=== PATIENT | female | born 1945 | race Caucasian/White ===

== ENCOUNTER → 2022-08-16 14:29 | Outpatient (CLI) | payer MEDICARE, OTHER, SELFPAY ==
[2022-08-16 15:10] LABS: Basophils % 0.4 % (0.1-2.0); Eosinophils # 0.2 K/mm3 (0.0-0.4); Eosinophils % 2.5 % (0.1-12.0); Hematocrit 33.4 % (37.0-47.0); Hemoglobin 11.2 g/dL (12.2-16.2); Lymphocytes # 1.3 K/mm3 (0.7-4.5); Lymphocytes % 14.8 % (10-50); Mean Corpuscular HGB Conc 33.5 g/dL (31.8-35.4); Mean Corpuscular Hemoglobin 30.1 pg (27.0-31.2); Mean Corpuscular Volume 89.9 fl (81-99); Mean Platelet Volume 8.1 fl (7.4-10.4); Monocytes # 0.3 K/mm3 (0.1-1.0); Monocytes % 3.6 % (1.7-9.3); Neutrophils # 6.6 K/mm3 (1.8-7.8); Neutrophils % 78.7 % (37.0-80.0); Platelet Count 191 K/mm3 (142-424); Red Blood Count 3.71 M/mm3 (4.20-5.40); Red Cell Distribution Width 14.3 % (11.5-17.5); White Blood Count 8.4 K/mm3 (4.8-10.8)
[2022-08-16 16:10] LABS: Alanine Aminotransferase 20 U/L (12-78); Albumin Level 3.5 g/dl (3.5-5.0); Albumin/Globulin Ratio 1.3 (1.1-1.8); Alkaline Phosphatase 141 U/L (38-126); Anion Gap 11.6 mEq/L (5-15); Aspartate Amino Transferase 37 U/L (14-36); Bilirubin,Total 0.2 mg/dl (0.2-1.3); Blood Urea Nitrogen 37 mg/dl (7-17); Calcium 8.8 mg/dl (8.4-10.2); Carbon Dioxide 29 mmol/L (22.0-30.0); Chloride 100 mmol/L (98-107); Estimated Glomerular Filt Rate 23 ml/min (>60); GFR (African American) 27 ML/MIN (>60); Globulin 2.6 g/dL (1.3-3.2); Glucose 223 mg/dl (74-100); Potassium 4.6 mmoL/L (3.5-5.1); Sodium 136 mmol/L (136-145); Total Protein,Serum 6.1 g/dl (6.3-8.2)
== END ==
PROVIDERS: PCP Family Medicine; Visit Provider Internal Medicine Nephrology
DX: N18.4 Chronic kidney disease, stage 4 (severe) (principal)
CPT/HCPCS: 36415; 80053; 85025

== ENCOUNTER 2024-11-24 09:49 | Inpatient (IN) | payer MEDICARE, OTHER, SELFPAY ==
[2024-11-24] VITALS (13 sets, daily range): BP systolic 154–199; BP diastolic 76–112; PULSE 77–86; RESP 15–20; TEMP 36.6–37.1; O2SAT 95–98; BMI 30.7; BMI 27.5
--- NOTE | 2024-11-24 09:59 | ED_ITS ---
Discharge Plan Disposition Patient Disposition: Admitted Condition: Fair Clinical Impressions Clinical Impression: Acute delirium Discharge ED Provider: Hubert Cooper General Adult HPI General Chief complaint: Weakness Stated complaint: high blood pressure soa AMS Time Seen by Provider: 11/24/24 09:58 History of Present Illness HPI narrative: Patient presents for evaluation of altered mental status, gradual in onset starting approximately 2 weeks ago however worsening for the past 48 hours. Patient had admission in September that was complicated by hospital-acquired delirium. She was admitted at that time for fracture of her left upper extremity that was treated nonoperatively at outside hospital. Patient denies any blood thinner usage although has history of type 2 diabetes, kidney disease, and CHF. She takes reportedly a as needed diuretic. Home health noted bilateral wheezing. Daughter who present provides majority of history reports she has noticed recent falls with no associated obvious head injury. Patient has been disoriented and requiring as needed oxygen all the time. She normally wears 2 L at night although occasionally in the past has required continuous supplemental oxygen. No reported fevers. No changes in medications. Patient was on opiate analgesia following her shoulder injury in September however that has since been discontinued. Please note that above description of symptoms, in this electronic medical record under categorization of recalled from ER triage doctor by RN are reflective of an initial nursing assessment, however, is not reflective of my full history and physical exam that was personally taken and clarified. Consequentially, this preceding description of symptoms, which may include the patient's categorized chief complaint in the EMR, do not reflect my personal clinical impression, and the ultimate description of history of present illness and patient stated complaints should be deferred to this section of the note. Unless stated otherwise or congruent with this section of the note, additional signs, symptoms, or incongruence should be interpreted as inaccurate with my clinical impression. Related Data Home Medications ?Medication ?Instructions ?Recorded ?Confirmed ferrous fumarate 325 mg (106 mg 325 mg PO DAILY 08/09/22 11/24/24 iron) tablet isosorbide mononitrate 30 mg 30 mg PO HS 08/09/22 11/24/24 tablet,extended release 24 hr cvtizdni-ngql-kihdmpu gluconate 9 15 ml PO DAILY 08/09/22 11/24/24 mg iron/15 mL (15 mL) oral liquid (Centrum) sertraline 100 mg tablet 100 mg PO DAILY 08/09/22 11/24/24 albuterol sulfate 90 mcg/actuation 2 inh inhalation NEEDED PRN 08/14/23 11/24/24 aerosol inhaler shortness of air blood sugar diagnostic (True #10 ea 08/14/23 11/24/24 Metrix Glucose Test Strip) lancets 30 gauge (TRUEplus Lancets) #100 ea 08/14/23 11/24/24 atorvastatin 40 mg tablet 40 mg PO HS 11/24/24 11/24/24 famotidine 20 mg tablet 10 mg PO HS 11/24/24 11/24/24 insulin aspart U-100 100 unit/mL See Protocol SQ NEEDED PRN 11/24/24 11/24/24 subcutaneous solution (Novolog Hyperglycemia U-100 Insulin aspart) insulin lispro 100 unit/mL 40 unit SQ DAILY 11/24/24 11/24/24 subcutaneous solution levothyroxine 100 mcg tablet 100 mcg PO DAILY 11/24/24 11/24/24 melatonin 5 mg tablet 5 mg PO HS PRN Sleep 11/24/24 11/24/24 metoprolol succinate 50 mg 50 mg PO DAILY 11/24/24 11/24/24 tablet,extended release 24 hr torsemide 20 mg tablet 20 mg PO DAILYP PRN Weight Gain 11/24/24 11/24/24 tramadol 50 mg tablet 50 mg PO BIDP PRN Pain 11/24/24 11/24/24 Allergies Allergy/AdvReac Type Severity Reaction Status Date / Time Penicillins Allergy Mild hives Verified 11/24/24 10:30 adhesive AdvReac Mild blisters Verified 11/24/24 10:30 CONTRAST Allergy Difficulty Uncoded 11/24/24 14:20 Breathing PFSH [facility] Disclaimer: The information contained in this section may have been updated after the patient was seen, as this information can be updated by other users. Medical History FH: cholecystectomy Breast cancer Surgical History H/O: hysterectomy H/O lumpectomy Hx of tonsillectomy Social History Smoking Status: Never smoker alcohol intake: never current occupational status: retired Travel in the last 8 weeks: None Have you lived/traveled outside [place] in past 30 days?: No Contact w/someone who lives/traveled outside US past 30 days?: No Exposure to someone with infectious disease in past 14 days?: No Do you have a fever (greater than 100.4 F or 38 C)?: No Have you tested positive for COVID-19: No Exposed to someone with COVID-19 in past 14 days?: No Do you have a sore throat?: No Do you have a cough?: No Do you have any weakness?: No Do you have any diarrhea?: No Are you experiencing any unusual bleeding?: No Do you have any muscle aches/pain?: No Do you have any abdominal pain?: No Are you experiencing loss of taste or smell?: No Other Medical History Have you received the Pneumonia Vaccine: Yes ROS Obtained: Yes other As per HPI Physical Exam General General appearance: alert and in no apparent distress Head Head exam: atraumatic and normocephalic Eye Eye exam: Present normal appearance Neck Neck exam: Present normal inspection Chest Chest inspection: Present normal inspection and symmetric chest wall rise Respiratory Respiratory exam: Present normal lung sounds bilaterally; Absent respiratory distress Cardiovascular Cardiovascular exam: Present regular rate and normal rhythm Abdominal Exam Abdominal exam: Present soft Neurological Exam Neurological exam: Present alert Psychiatric Psychiatric exam: Present normal affect and normal mood Skin Skin exam: Present warm and dry Other Other exam information: Decreased breath sounds on right, wheezing bilaterally Medical Decision Making Medical Records Medical records reviewed: Yes I reviewed the patient's medical records. Screening: Per USPSTF and CDC recommendations, given the prevalence of disease in our region, it is our hospital?s policy to screen for HIV and viral Hepatitis for all patients aged 18 and over and those with ongoing risk factors. Tal Inquiry Pt receiving controlled substance: No Vital Signs: 11/24/24 09:50 11/24/24 10:04 11/24/24 10:06 Temperature 98.7 F Temperature Source Oral Pulse Rate 84 82 Pulse Rate [Left Radial] 83 Respiratory Rate 16 15 Blood Pressure 195/94 H 197/112 H Blood Pressure [Right Arm] 195/94 H Blood Pressure Mean [Right Arm] 127 Blood Pressure Source [Right Arm] 02 Sat by Pulse Oximetry 97 96 97 Oxygen Delivery Method Room Air Room Air Room Air Oxygen Flow Rate (LPM) 11/24/24 10:30 11/24/24 11:01 11/24/24 11:31 Temperature Temperature Source Pulse Rate 78 81 77 Pulse Rate [Left Radial] Respiratory Rate 18 16 19 Blood Pressure 154/97 H 168/83 H 194/100 H Blood Pressure [Right Arm] Blood Pressure Mean [Right Arm] Blood Pressure Source [Right Arm] 02 Sat by Pulse Oximetry 97 95 96 Oxygen Delivery Method Nasal Cannula Nasal Cannula Nasal Cannula Oxygen Flow Rate (LPM) 2 2 2 11/24/24 12:00 11/24/24 12:31 11/24/24 13:01 Temperature Temperature Source Pulse Rate 77 79 78 Pulse Rate [Left Radial] Respiratory Rate 15 17 20 Blood Pressure 199/98 H 194/98 H 183/90 H Blood Pressure [Right Arm] Blood Pressure Mean [Right Arm] Blood Pressure Source [Right Arm] 02 Sat by Pulse Oximetry 96 96 97 Oxygen Delivery Method Nasal Cannula Nasal Cannula Nasal Cannula Oxygen Flow Rate (LPM) 2 2 2 11/24/24 14:00 11/24/24 14:09 Temperature 97.8 F 98.0 F Temperature Source Oral Pulse Rate 78 Pulse Rate [Left Radial] 86 Respiratory Rate 18 16 Blood Pressure 183/90 H Blood Pressure [Right Arm] 177/77 H Blood Pressure Mean [Right Arm] 110 Blood Pressure Source [Right Arm] Automatic Cuff 02 Sat by Pulse Oximetry 98 Oxygen Delivery Method Nasal Cannula Oxygen Flow Rate (LPM) 2 Lab Data Lab Results 11/24/24 10:00: Urine Color Yellow, Urine Appearance Clear, Urine pH 6.5, Ur Specific [place] 1.025, Urine Protein 3+ A, Urine Glucose (UA) 1+, Urine Ketones Negative, Urine Blood 1+ A, Urine Nitrate Positive A, Urine Bilirubin Negative, Urine Urobilinogen 1.0, Ur Leukocyte Esterase Negative, Urine RBC Occasional, Urine WBC 20-50, Ur Squamous Epith Cells 3-5, Urine Bacteria 1+ 11/24/24 10:08: WBC 8.3, RBC 4.20, Hgb 11.9 L, Hct 36.9 L, MCV 87.9, MCH 28.3, MCHC 32.2, RDW 14.0, Plt Count 165, MPV 9.8, Neut % (Auto) 75.5, Lymph % (Auto) 16.5, [place] % (Auto) 4.8, Eos % (Auto) 2.3, Baso % (Auto) 0.5, Neut # (Auto) 6.2, Lymph # (Auto) 1.4, [place] # (Auto) 0.4, Eos # (Auto) 0.2, Baso # (Auto) 0.0, Sodium 138, Potassium 3.5, Chloride 98, Carbon Dioxide 36 H, Anion Gap 7.5, BUN 18 H, Creatinine 1.10 H, Estimated Creat Clear 53, Estimated GFR 48 L, Est GFR ( Amer) 58 L, Glucose 274 H, Calcium 8.5, Magnesium 1.7, Total Bilirubin 0.6, AST 43 H, ALT 27, Alkaline Phosphatase 142 H, Troponin I 0.02, NT-Pro-B Natriuret Pep 10934 H, Total Protein 6.1 L, Albumin 3.6, Globulin 2.5, Albumin/Globulin Ratio 1.4, Lipase 68, TSH 3.00, Free T4 1.49, HCV Ab MONICA w/Rflx PCR Qn Negative, HIV Ag/Ab Combo Qual Negative 11/24/24 10:15: VBG pH 7.34, VBG pCO2 59.3 H, VBG pO2 41.2 H, VBG HCO3 31.6 H, V BG Total CO2 33.4 H, VBG O2 Saturation 72.5 H, VBG Base Excess 5.9 H, VBG Lactic Acid 1.4 11/24/24 10:30: Chlamy pneumoniae PCR Not detected, Adenovirus (PCR) Not detected, B. pertussis DNA (PCR) Not detected, Coronavirus OC43 (PCR) Not detected, Coronavirus HKU1 (PCR) Not detected, Coronavirus 229E (PCR) Not detected, SARS-CoV-2 (PCR) Not detected 11/24/24 10:30: SARS-CoV-2 (PCR) Not detected, Coronavirus NL63 (PCR) Not detected, Human Metapneumovir PCR Not detected, Influenza A (H1) PCR Not detected, Influ A (H1N1/09) PCR Not detected, Influenza A (H3) PCR Not detected, Influenza Type A (PCR) Not detected, Influenza A Untype (PCR) Not detected, Influenza Type B (PCR) Not detected 11/24/24 10:30: Influenza Type B (PCR) Not detected, M. pneumoniae (PCR) Not detected, Parainfluenza 1 (PCR) Not detected, Parainfluenza 2 (PCR) Not detected, Parainfluenza 3 (PCR) Not detected, Parainfluenza 4 (PCR) Not detected, RSV (PCR) Not detected, Entero/Rhino (PCR) Not detected 11/24/24 13:10: Troponin I 0.02 11/24/24 10:08 11/24/24 10:08 Orders (Tests/Meds): ED MEDICATIONS Generic Name Dose Route Start Last Admin Trade Name Freq PRN Reason Stop Dose Admin Acetaminophen 650 mg 11/24/24 15:04 Acetaminophen 325mg Tab PO 12/24/24 15:03 Q4HP PRN Fever or Mild Pain (1-3) Enoxaparin Sodium 40 mg 11/25/24 09:00 Enoxaparin 40mg/0.4ml Syringe SUBCUT 12/25/24 08:59 DAILY [facility] Insulin Human Lispro 0 unit 11/24/24 16:30 Humalog 100 Units/Ml 10ml Vial (Ssi) SUBCUT 12/24/24 16:29 ACHS SHAUN Protocol Ondansetron HCl 4 mg 11/24/24 15:04 Ondansetron 4mg/2ml Vial IV 12/24/24 15:03 Q6HP PRN Nausea Discontinued Medications Generic Name Dose Route Start Last Admin Trade Name Freq PRN Reason Stop Dose Admin Furosemide 40 mg 11/24/24 10:48 11/24/24 10:54 Furosemide 40mg/4ml Vial IV 11/24/24 10:49 40 mg ONCE ONE Administration Ceftriaxone Sodium 1 gm/ 50 mls @ 100 mls/hr 11/24/24 11:36 11/24/24 11:45 Sodium Chloride IV 11/24/24 12:05 100 mls/hr ONCE STA Administration ORDERS Category Date Time Status CT cervical spine wo con Stat Cat Scan 11/24/24 10:[address] head/brain wo con Stat Cat Scan 11/24/24 10:26 Completed POCUS Point of Care (ER Only) Stat Exams 11/24/24 10:07 Completed XR chest portable Stat Exams 11/24/24 10:27 Completed BNP [NT Pro Brain Natriuretic Pep.] Stat Lab 11/24/24 10:08 Completed CBC w/Auto Diff [Complete Blood Count Auto Diff] Stat Lab 11/24/24 10:08 Completed CMP [Comprehensive Metabolic Panel] Stat Lab 11/24/24 10:08 Completed Free T4 (Free Thyroxine) Stat Lab 11/24/24 10:08 Completed Full Resp Panel w/COVID ([facility]) Routine Lab 11/24/24 10:30 Completed HIV Combo Stat Lab 11/24/24 10:08 Completed Hepatitis C Ab Qual. W/ RFX Stat Lab 11/24/24 10:08 Completed Lipase Stat Lab 11/24/24 10:08 Completed MAG [Magnesium] Stat Lab 11/24/24 10:08 Completed Rapid PCR Covid and Flu A/B Stat Lab 11/24/24 10:30 Completed TSH [Thyroid Stimulating Hormone] Stat Lab 11/24/24 10:08 Completed Troponin I Q3H Lab 11/24/24 10:08 Completed Troponin I Q3H Lab 11/24/24 13:10 Completed Urinalysis and Microscopic Stat Lab 11/24/24 10:00 Completed Blood Culture Stat Micro 11/24/24 11:30 Received Urine Culture Stat Micro 11/24/24 10:00 Received VBG [Venous Blood Gas] Stat RT 11/24/24 10:15 Completed Medical Decision Narrative: Patient with history and exam per above presenting for evaluation of altered mental status Diagnoses considered include delirium, volume overload, infectious precipitant, among others. Dnqby-[id number] ultrasound reveals right-sided pleural effusion, moderate, with evidence of pulmonary edema bilaterally ED workup and treatment included: ED MEDICATIONS Generic Name Dose Route Start Last Admin Trade Name Freq PRN Reason Stop Dose Admin Acetaminophen 650 mg 11/24/24 15:04 Acetaminophen 325mg Tab PO 12/24/24 15:03 Q4HP PRN Fever or Mild Pain (1-3) Enoxaparin Sodium 40 mg 11/25/24 09:00 Enoxaparin 40mg/0.4ml Syringe SUBCUT 12/25/24 08:59 DAILY SHAUN Insulin Human Lispro 0 unit 11/24/24 16:30 Humalog 100 Units/Ml 10ml Vial (Ssi) SUBCUT 12/24/24 16:29 ACHS SHAUN Protocol Ondansetron HCl 4 mg 11/24/24 15:04 Ondansetron 4mg/2ml Vial IV 12/24/24 15:03 Q6HP PRN Nausea Discontinued Medications Generic Name Dose Route Start Last Admin Trade Name Freq PRN Reason Stop Dose Admin Furosemide 40 mg 11/24/24 10:48 11/24/24 10:54 Furosemide 40mg/4ml Vial IV 11/24/24 10:49 40 mg ONCE ONE Administration Ceftriaxone Sodium 1 gm/ 50 mls @ 100 mls/hr 11/24/24 11:36 11/24/24 11:45 Sodium Chloride IV 11/24/24 12:05 100 mls/hr ONCE STA Administration ORDERS Category Date Time Status CT cervical spine wo con Stat Cat Scan 11/24/24 10:[address] head/brain wo con Stat Cat Scan 11/24/24 10:26 Completed POCUS Point of Care (ER Only) Stat Exams 11/24/24 10:07 Completed XR chest portable Stat Exams 11/24/24 10:27 Completed BNP [NT Pro Brain Natriuretic Pep.] Stat Lab 11/24/24 10:08 Completed CBC w/Auto Diff [Complete Blood Count Auto Diff] Stat Lab 11/24/24 10:08 Completed CMP [Comprehensive Metabolic Panel] Stat Lab 11/24/24 10:08 Completed Free T4 (Free Thyroxine) Stat Lab 11/24/24 10:08 Completed Full Resp Panel w/COVID ([facility]) Routine Lab 11/24/24 10:30 Completed HIV Combo Stat Lab 11/24/24 10:08 Completed Hepatitis C Ab Qual. W/ RFX Stat Lab 11/24/24 10:08 Completed Lipase Stat Lab 11/24/24 10:08 Completed MAG [Magnesium] Stat Lab 11/24/24 10:08 Completed Rapid PCR Covid and Flu A/B Stat Lab 11/24/24 10:30 Completed TSH [Thyroid Stimulating Hormone] Stat Lab 11/24/24 10:08 Completed Troponin I Q3H Lab 11/24/24 10:08 Completed Troponin I Q3H Lab 11/24/24 13:10 Completed Urinalysis and Microscopic Stat Lab 11/24/24 10:00 Completed Blood Culture Stat Micro 11/24/24 11:30 Received Urine Culture Stat Micro 11/24/24 10:00 Received VBG [Venous Blood Gas] Stat RT 11/24/24 10:15 Completed Labs were independently interpreted by me, significant for no leukocytosis, no respiratory acidosis, creatinine overall consistent with what appears to be baseline, however BNP 10,700, urinalysis with pyuria, bacteriuria, nitrate positive Imaging was independently visualized and interpreted by me, significant for no acute findings Please refer to radiology report for full details. Patient will benefit from mission for further management. She was accepted for admission by hospitalist Critical Care Critical Care Time Critical Care Time: No
--- NOTE | 2024-11-24 10:02 | PC.NURSE ---
UA sent to lab
--- NOTE | 2024-11-24 10:03 | ECG_ITS ---
APPROVED REPORT Exam: Resting ECG HR:83 bpm ECG Measurements Heart Rate 83 AXES CO 218 P 91 QRSd 179 QRS -69 QT 458 T 114 QTc 498 Conclusion ELECTRONIC VENTRICULAR PACEMAKER ABNORMAL RHYTHM ECG Electronically signed by : JOSIE CHRIS, 11/27/2024 06:07:10
--- NOTE | 2024-11-24 10:11 | PC.NURSE ---
I called respiratory and spoke with with Elyse letting her know that I sent a VBG to lab.
[2024-11-24 10:18] LABS: Lactate Venous 1.4 mmol/L (0.4-2.0); VBG Base Excess 5.9 mmol/L (-2.4-2.3); VBG HCO3 31.6 mmol/L (23-30); VBG Oxygen Saturation 72.5 % (50-70); VBG PH 7.34 mmol/L (7.31-7.41); VBG PO2 41.2 mmol/L (28-40); VBG Total CO2 33.4 mmol/L (23-27)
[2024-11-24 10:21] LABS: VBG PCO2 59.3 mmol/L (35-51)
--- NOTE | 2024-11-24 10:21 | PC.NURSE ---
respiratory called with critical results i transferred call to charge nurse ko
--- NOTE | 2024-11-24 10:21 | PC.NURSE ---
daughter remains at bedside
--- NOTE | 2024-11-24 10:21 | PC.NURSE ---
aware of [id number] from [facility]
--- NOTE | 2024-11-24 10:26 | CT_ITS ---
FINAL REPORT TECHNIQUE: Thin section axial CT with sagittal reconstruction without contrast This study was performed with techniques to keep radiation doses as low as reasonably achievable, (ALARA). Individualized dose reduction techniques using automated exposure control or adjustment of mA and/or kV according to the patient''s size were employed. CLINICAL HISTORY: ams, recent falls FINDINGS: No fracture is seen. Alignment is normal. There is mild diffuse degenerative disc disease. No obvious bony spinal canal stenosis is present. No gross disk abnormalities are seen. 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 There are bilateral pleural effusions seen, right greater than left. IMPRESSION: No fracture or malalignment of the cervical spine. Bilateral pleural effusions, right greater than left. Reviewed, Interpreted and Dictated by Ashlyn Hernandez MD Transcribed by Roxana Knapp Authenticated and [facility]
--- NOTE | 2024-11-24 10:26 | CT_ITS ---
FINAL REPORT TECHNIQUE: Noncontrast exam This study was performed with techniques to keep radiation doses as low as reasonably achievable, (ALARA). Individualized dose reduction techniques using automated exposure control or adjustment of mA and/or kV according to the patient''s size were employed. CLINICAL HISTORY: ams, recent falls FINDINGS: There is mild generalized atrophy and mild chronic microvascular ischemic change. There is a small chronic lacunar infarct in the left basal ganglia. No abnormal density is seen. Ventricles are normal. There is no hemorrhage. No mass effect is seen. Bone windows show no evidence of fracture. IMPRESSION: No acute findings Reviewed, Interpreted and Dictated by Ashlyn Hernandez MD Transcribed by Roxana Knapp Authenticated and [facility]
--- NOTE | 2024-11-24 10:27 | XR_ITS ---
FINAL REPORT TECHNIQUE: Single view chest CLINICAL HISTORY: ams, soa, B lines/R effusion on pocus FINDINGS: A single view of the chest was obtained. The heart is mildly enlarged. A left-sided pacemaker is in place. The lungs are clear. There is no pneumothorax. 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 There is an age-indeterminate fracture of the left proximal humerus. IMPRESSION: No acute cardiopulmonary process. Left humeral head and neck fracture, age-indeterminate. Reviewed, Interpreted and Dictated by Ashlyn Hernandez MD Transcribed by Roxana Knapp Authenticated and [facility]
--- NOTE | 2024-11-24 10:30 | PC.NURSE ---
pt to radiology via stretcher
--- NOTE | 2024-11-24 10:32 | PC.NURSE ---
pt going to ct via stretcher
[2024-11-24 10:33] LABS: Microscopic, Urine URINE MICROSCOPIC (MICROSCOPIC)
[2024-11-24 10:33] LABS: Basophils % 0.5 % (0.1-2.0); Eosinophils # 0.2 K/mm3 (0.0-0.4); Eosinophils % 2.3 % (0.1-12.0); Hematocrit 36.9 % (37.0-47.0); Hemoglobin 11.9 g/dL (12.2-16.2); Lymphocytes # 1.4 K/mm3 (0.7-4.5); Lymphocytes % 16.5 % (10-50); Mean Corpuscular HGB Conc 32.2 g/dL (31.8-35.4); Mean Corpuscular Hemoglobin 28.3 pg (27.0-31.2); Mean Corpuscular Volume 87.9 fl (81-99); Mean Platelet Volume 9.8 fl (7.4-10.4); Monocytes # 0.4 K/mm3 (0.1-1.0); Monocytes % 4.8 % (1.7-9.3); Neutrophils # 6.2 K/mm3 (1.8-7.8); Neutrophils % 75.5 % (37.0-80.0); Platelet Count 165 K/mm3 (142-424); White Blood Count 8.3 K/mm3 (4.8-10.8)
[2024-11-24 10:35] LABS: Coronavirus 19, PCR Not Detected (NotDetected); Influenza A, PCR Not Detected (NotDetected); Influenza B, PCR Not Detected (NotDetected)
[2024-11-24 10:39] LABS: Albumin Level 3.6 g/dl (3.5-5.0); Chloride 98 mmol/L (98-107)
[2024-11-24 10:40] LABS: Potassium 3.5 mmoL/L (3.5-5.1); Sodium 138 mmol/L (136-145)
[2024-11-24 10:42] LABS: Alanine Aminotransferase 27 U/L (12-78); Anion Gap 7.5 mEq/L (5-15); Aspartate Amino Transferase 43 U/L (14-36); Blood Urea Nitrogen 18 mg/dl (7-17); Carbon Dioxide 36 mmol/L (22.0-30.0); Creatinine Clearance Estimated 53 mL/min (50-200); Estimated Glomerular Filt Rate 48 ml/min (>60); GFR (African American) 58 ML/MIN (>60)
--- NOTE | 2024-11-24 10:42 | PC.NURSE ---
pt arrived melonie to room from ct
[2024-11-24 10:43] LABS: Albumin/Globulin Ratio 1.4 (1.1-1.8); Alkaline Phosphatase 142 U/L (38-126); Bilirubin,Total 0.6 mg/dl (0.2-1.3); Calcium 8.5 mg/dl (8.4-10.2); Globulin 2.5 g/dL (1.3-3.2); Glucose 274 mg/dl (74-100); Lipase 68 U/L (23-300); Magnesium 1.7 mg/dl (1.6-2.3); Total Protein,Serum 6.1 g/dl (6.3-8.2)
[2024-11-24 10:52] LABS: NT Pro Brain Natriuretic Pep. 10700 pg/mL (0-450)
[2024-11-24] MEDS: FUROSEMIDE 40MG/4ML VIAL 40 MG IV (10:54)
[2024-11-24 10:55] LABS: Troponin I 0.02 ng/ml (0.00-0.034)
[2024-11-24 11:00] LABS: Appearance,Urine CLEAR (Clear); Bilirubin,Urine Negative (Negative); Blood, Urine 1+ (Negative); Color,Urine YELLOW (Yellow); Glucose,Urine (UA) 1+ (Negative); Ketones,Urine Negative (Negative); Leukocyte Esterase,Urine Negative (Negative); Nitrate,Urine POSITIVE (Negative); PH,Urine 6.5 (5.0-8.5); Protein,Urine 3+ (Negative); Specific Gravity, Urine 1.025 (1.005-1.030)
[2024-11-24 11:02] LABS: Free T4 (Free Thyroxine) 1.49 ng/dl (0.78-2.19)
--- NOTE | 2024-11-24 11:02 | PC.NURSE ---
Purewick was placed for pateint done by tech EB
[2024-11-24 11:17] LABS: Bacteria,Urine 1+ /lpf; RBC,Urine Occasional #/hpf (0-3); WBC,Urine 20-50 #/hpf (0-3)
--- NOTE | 2024-11-24 11:23 | PC.NURSE ---
pt going to xray at this time
[2024-11-24 11:25] LABS: HIV Combo NEGATIVE (Negative)
--- NOTE | 2024-11-24 11:31 | PC.NURSE ---
2nd blood culture was done and sent to lab @1130. Blue band was placed on pt.
[2024-11-24 11:34] LABS: Hepatitis C Ab Qual. W/ RFX NEGATIVE (Negative)
[2024-11-24] MEDS: CEFTRIAXONE 1 GM 1 GM in 0.9 % SODIUM CHLORIDE 50 ML IV (11:45)
--- NOTE | 2024-11-24 11:45 | PC.NURSE ---
AT BS SPEAKING WITH PT AND DAUGHTER ABOUT POSS ADMISSION
--- NOTE | 2024-11-24 12:48 | PC.NURSE ---
Put white sheet under pt to pull pt up in bed, also Jennifer emptied 800 out of cannister urine.
--- NOTE | 2024-11-24 12:50 | PC.NURSE ---
spoke with house regarding bed
[2024-11-24 12:53] LABS: Adenovirus,PCR Not Detected (NotDetected); Bordetella Pertussis Not Detected (NotDetected); Chlamydophila Pneumoniae, PCR Not Detected (NotDetected); Coronavirus 19, PCR Not Detected (NotDetected); Coronavirus 229E Not Detected (NotDetected); Coronavirus NL63 Not Detected (NotDetected); Coronavirus OC43 Not Detected (NotDetected); Coronovirus HKU1,PCR Not Detected (NotDetected); Human Metapneumovirus Not Detected (NotDetected); Influenza A, PCR Not Detected (NotDetected); Influenza AH1, 2009 Not Detected (NotDetected); Influenza AH1, PCR Not Detected (NotDetected); Influenza AH3,PCR Not Detected (NotDetected); Influenza B, PCR Not Detected (NotDetected); Mycoplasma Pneumoniae, PCR Not Detected (NotDetected); Parainfluenza 1, PCR Not Detected (NotDetected); Parainfluenza 2, PCR Not Detected (NotDetected); Parainfluenza 3, PCR Not Detected (NotDetected); Parainfluenza 4, PCR Not Detected (NotDetected); Respiratory Syncytial Virus Not Detected (NotDetected); Rhinovirus/Enterovirus Not Detected (NotDetected)
--- NOTE | 2024-11-24 13:14 | PC.NURSE ---
pt ambulated to bathroom with TRN and cullen ko RN
--- NOTE | 2024-11-24 13:24 | PC.NURSE ---
report called to anna on second floor
--- NOTE | 2024-11-24 13:27 | PC.NURSE ---
assisted pt in bathroom and assisted with A.Lopez back to pt room, pt resting comfortable with family at bs
--- NOTE | 2024-11-24 13:27 | PC.NURSE ---
helped walk pt back to room and get in bed. pt is hooked back up to data machine and marc ko placed purewick back on pt
[2024-11-24 13:38] LABS: Troponin I 0.02 ng/ml (0.00-0.034)
--- NOTE | 2024-11-24 13:48 | [facility].PHAINT1 ---
Pharmacy Intervention Comments: home medication list verified using list from outpatient pharmacy and pt interview
--- NOTE | 2024-11-24 13:54 | PC.NURSE ---
arrived by w/c from ED
--- NOTE | 2024-11-24 15:04 | P.HP_ITS ---
History of Present Illness *Admission Date: 11/24/24 *Reason for visit:: Confusion, UTI *History of present illness: Magdalena Mcmanus is a 79-year-old female with a medical history significant for type 2 diabetes, hypertension, hypothyroidism who presents with 2 weeks of intermittent confusion, shortness of breath. Daughter at bedside provides most history. They state patient was recently admitted to [facility] in September 2020 for for left humeral fracture that was treated nonoperatively. Discharged to rehab, and returned home with home health end of September. Since then, per daughter, patient has not been truly herself and for the past 2 weeks she is gotten much more confused, and has required 2 L nasal cannula continuously at home. She is also had a few falls at home. She lives with her , daughter at home. Denies fever/chills, chest pain, abdominal pain, constipation/diarrhea. Daughter does state her legs have been more swollen today. Workup in the ED significant for BNP 10,700, CXR suggestive of pulmonary edema, UA suggestive of UTI. Head CT unremarkable for acute findings. Case discussed with ED provider and decision was made to admit patient for acute metabolic encephalopathy, UTI, heart failure exacerbation. [facility] Disclaimer: The information contained in this section may have been updated after the patient was seen, as this information can be updated by other users. Medical History FH: cholecystectomy Breast cancer Surgical History H/O: hysterectomy H/O lumpectomy Hx of tonsillectomy Social History Smoking Status: Never smoker alcohol intake: never current occupational status: retired Travel in the last 8 weeks: None Have you lived/traveled outside US in past 30 days?: No Contact w/someone who lives/traveled outside US past 30 days?: No Exposure to someone with infectious disease in past 14 days?: No Do you have a fever (greater than 100.4 F or 38 C)?: No Have you tested positive for COVID-19: No Exposed to someone with COVID-19 in past 14 days?: No Do you have a sore throat?: No Do you have a cough?: No Do you have any weakness?: No Do you have any diarrhea?: No Are you experiencing any unusual bleeding?: No Do you have any muscle aches/pain?: No Do you have any abdominal pain?: No Are you experiencing loss of taste or smell?: No Other Medical History Have you received the Flu Vaccine for this season: Yes Have you received the Pneumonia Vaccine: Yes Meds Home Medications and Allergies Home Medications ?Medication ?Instructions ?Recorded ?Confirmed ?Type ferrous fumarate 325 mg (106 mg 325 mg PO DAILY 08/09/22 11/24/24 History iron) tablet isosorbide mononitrate 30 mg 30 mg PO HS 08/09/22 11/24/24 History tablet,extended release 24 hr ppzycxon-ytyz-xvgxotc gluconate 9 15 ml PO DAILY 08/09/22 11/24/24 History mg iron/15 mL (15 mL) oral liquid (Centrum) sertraline 100 mg tablet 100 mg PO DAILY 08/09/22 11/24/24 History albuterol sulfate 90 mcg/actuation 2 inh inhalation NEEDED PRN 08/14/23 11/24/24 History aerosol inhaler shortness of air blood sugar diagnostic (True #10 ea 08/14/23 11/24/24 History Metrix Glucose Test Strip) lancets 30 gauge (TRUEplus Lancets) #100 ea 08/14/23 11/24/24 History atorvastatin 40 mg tablet 40 mg PO HS 11/24/24 11/24/24 History famotidine 20 mg tablet 10 mg PO HS 11/24/24 11/24/24 History insulin aspart U-100 100 unit/mL See Protocol SQ NEEDED PRN 11/24/24 11/24/24 History subcutaneous solution (Novolog Hyperglycemia U-100 Insulin aspart) insulin lispro 100 unit/mL 40 unit SQ DAILY 11/24/24 11/24/24 History subcutaneous solution levothyroxine 100 mcg tablet 100 mcg PO DAILY 11/24/24 11/24/24 History melatonin 5 mg tablet 5 mg PO HS PRN Sleep 11/24/24 11/24/24 History metoprolol succinate 50 mg 50 mg PO DAILY 11/24/24 11/24/24 History tablet,extended release 24 hr torsemide 20 mg tablet 20 mg PO DAILYP PRN Weight Gain 11/24/24 11/24/24 History tramadol 50 mg tablet 50 mg PO BIDP PRN Pain 11/24/24 11/24/24 History New Prescriptions to Start Prescriptions: Allergies Allergy/AdvReac Type Severity Reaction Status Date / Time Penicillins Allergy Mild hives Verified 11/24/24 10:30 adhesive AdvReac Mild blisters Verified 11/24/24 10:30 CONTRAST Allergy Difficulty Uncoded 11/24/24 14:20 Breathing Exam Data for Last 24 hours Vital signs and Labs for Last 24 Hours: Temp Pulse Resp BP Pulse Ox O2 Del Method O2 Flow Rate 98.0 F 78 16 183/90 H 98 Nasal Cannula 2 11/24/24 14:09 11/24/24 14:09 11/24/24 14:09 11/24/24 14:09 11/24/24 14:00 11/24/24 14:00 11/24/24 14:00 Laboratory Results - last 24 hr 11/24/24 10:00: Urine Color Yellow, Urine Appearance Clear, Urine pH 6.5, Ur Specific [place] 1.025, Urine Protein 3+ A, Urine Glucose (UA) 1+, Urine Ketones Negative, Urine Blood 1+ A, Urine Nitrate Positive A, Urine Bilirubin Negative, Urine Urobilinogen 1.0, Ur Leukocyte Esterase Negative, Urine RBC Occasional, Urine WBC 20-50, Ur Squamous Epith Cells 3-5, Urine Bacteria 1+ 11/24/24 10:08: WBC 8.3, RBC 4.20, Hgb 11.9 L, Hct 36.9 L, MCV 87.9, MCH 28.3, MCHC 32.2, RDW 14.0, Plt Count 165, MPV 9.8, Neut % (Auto) 75.5, Lymph % (Auto) 16.5, Mathews % (Auto) 4.8, Eos % (Auto) 2.3, Baso % (Auto) 0.5, Neut # (Auto) 6.2, Lymph # (Auto) 1.4, Mathews # (Auto) 0.4, Eos # (Auto) 0.2, Baso # (Auto) 0.0, Sodium 138, Potassium 3.5, Chloride 98, Carbon Dioxide 36 H, Anion Gap 7.5, BUN 18 H, Creatinine 1.10 H, Estimated Creat Clear 53, Estimated GFR 48 L, Est GFR ( Amer) 58 L, Glucose 274 H, Calcium 8.5, Magnesium 1.7, Total Bilirubin 0.6, AST 43 H, ALT 27, Alkaline Phosphatase 142 H, Troponin I 0.02, NT-Pro-B Natriuret Pep 30584 H, Total Protein 6.1 L, Albumin 3.6, Globulin 2.5, Albumin/Globulin Ratio 1.4, Lipase 68, TSH 3.00, Free T4 1.49, HCV Ab MONICA w/Rflx PCR Qn Negative, HIV Ag/Ab Combo Qual Negative 11/24/24 10:15: VBG pH 7.34, VBG pCO2 59.3 H, VBG pO2 41.2 H, VBG HCO3 31.6 H, VBG Total CO2 33.4 H, VBG O2 Saturation 72.5 H, VBG Base Excess 5.9 H, VBG Lactic Acid 1.4 11/24/24 10:30: Chlamy pneumoniae PCR Not detected, Adenovirus (PCR) Not detected, B. pertussis DNA (PCR) Not detected, Coronavirus OC43 (PCR) Not detected, Coronavirus HKU1 (PCR) Not detected, Coronavirus 229E (PCR) Not detected, SARS-CoV-2 (PCR) Not detected 11/24/24 10:30: SARS-CoV-2 (PCR) Not detected, Coronavirus NL63 (PCR) Not detected, Human Metapneumovir PCR Not detected, Influenza A (H1) PCR Not detected, Influ A (H1N1/09) PCR Not detected, Influenza A (H3) PCR Not detected, Influenza Type A (PCR) Not detected, Influenza A Untype (PCR) Not detected, Influenza Type B (PCR) Not detected 11/24/24 10:30: Influenza Type B (PCR) Not detected, M. pneumoniae (PCR) Not detected, Parainfluenza 1 (PCR) Not detected, Parainfluenza 2 (PCR) Not detected, Parainfluenza 3 (PCR) Not detected, Parainfluenza 4 (PCR) Not detected, RSV (PCR) Not detected, Entero/Rhino (PCR) Not detected 11/24/24 13:10: Troponin I 0.02 I & O for Last 24 hours: Intake & Output 11/21/24 11/22/24 11/23/24 11/24/24 23:59 23:59 23:59 23:59 Weight 77.292 kg Constitutional Constitutional: no acute distress *Routine HEENT Exam Head: Present normocephalic Eye: Present EOMI and PERRL ENT: Present mucous membranes moist *Routine Neck Exam Neck: Present supple; Absent lymphadenopathy *Routine Respiratory Exam Respiratory: Present CTA bilaterally *Routine Cardiovascular Exam Cardiovascular: Present RRR *Routine Abdominal Exam Abdominal: Present soft and normoactive bowel sounds; Absent tenderness *Routine Rectal Exam Rectal:: deferred *Routine Genitalia Exam Genitalia:: deferred *Routine Extremities Exam Extremities: Absent cyanosis, clubbing or edema *Routine Skin Exam Skin: Present warm; Absent rash *Routine Neurological Exam Neurological: Present alert Assessment and Plan *Assessment and plan (1) Type 2 diabetes mellitus: Status: Acute Qualifiers: Diabetes mellitus snf insulin use: without intermediate teacher use Diabetes mellitus complication status: without complication Qualified Code(s): E11.9 - Type 2 diabetes mellitus without complications Category: Medical Code(s): E11.9 - Type 2 diabetes mellitus without complications Plan Magdalena Mcmanus is a 79-year-old female with a medical history significant for type 2 diabetes, hypertension, hypothyroidism who presents with 2 weeks of intermittent confusion, shortness of breath. Daughter at bedside provides most history. They state patient was recently admitted to [facility] in September 2020 for for left humeral fracture that was treated nonoperatively. Discharged to rehab, and returned home with home health end of September. Since then, per daughter, patient has not been truly herself and for the past 2 weeks she is gotten much more confused, and has required 2 L nasal cannula continuously at home. She is also had a few falls at home. She lives with her , daughter at home. Denies fever/chills, chest pain, abdominal pain, constipation/diarrhea. Daughter does state her legs have been more swollen today. Workup in the ED significant for BNP 10,700, CXR suggestive of pulmonary edema, UA suggestive of UTI. Head CT unremarkable for acute findings. Case discussed with ED provider and decision was made to admit patient for acute metabolic encephalopathy, UTI, heart failure exacerbation. #Acute metabolic encephalopathy #UTI ? UA grossly abnormal, follow-up urine culture. ? IV ceftriaxone day 1/5. ? Follow-up urine, blood cultures. ? Follow-up TSH, free T4, B12, folate, vitamin D, iron studies. #Acute hypoxic respiratory failure #Heart failure exacerbation, unknown type ? BNP elevated 10,700, CXR with pulmonary edema. ? Requiring 2 L continuous nasal cannula, new requirement. ? IV Lasix daily. Follow-up urine output, renal function, electrolytes. ? Continue home Imdur 30 mg. Consider starting spironolactone if BP can tolerate. ? Follow-up ECHO. #Type 2 diabetes ? LDSSI, ACHS glucose checks. ? Follow-up A1c. #Hypothyroidism ? Resume home levothyroxine 100 mcg. ? Follow-up morning TFTs. #CKD ? Stable. Continue monitor. Full code DVT prophylaxis: Lovenox 40 mg
[2024-11-24 16:10] LABS: POC Glucose,Bedside 268 (70-110)
[2024-11-24] MEDS: humaLOG 100 UNITS/ML 10ML VIAL (SSI) SUBCUT ×2 (17:04→20:37)
[2024-11-24] MEDS: MAGNESIUM SULFATE IN WATER 2 GM/50 ML PIGGYBACK IV ×2 (17:04→18:08)
[2024-11-24] MEDS: METOPROLOL SUCCINATE XL 50MG TABLET 50 MG PO (18:08)
[2024-11-24 18:15] LABS: Ammonia < 9 umol/L (9-30)
--- NOTE | 2024-11-24 19:13 | PC.NURSE ---
Per MD Tobin, if patients freestyle gabi blood sugar is within 10 with hospital FSBS it is okay to use gabi device instead of FSBS.
[2024-11-24 20:14] LABS: POC Glucose,Bedside 318 (70-110)
[2024-11-24] MEDS: ATORVASTATIN 40MG TABLET 40 MG PO (20:37)
[2024-11-24] MEDS: OLANZapine 5 MG ODT TABLET SL (20:37)
[2024-11-24] MEDS: ISOSORBIDE MONO 30MG TAB.ER.24H 30 MG PO (20:37)
[2024-11-25 04:00] VITALS: BP 144/85; PULSE 86; RESP 19; TEMP 36.8; O2SAT 95; BMI 27.1
--- NOTE | 2024-11-25 04:36 | PC.NURSE ---
Addendum entered by Zara Bright RN 11/25/24 06:22: FSBS using glucometer this am is 230, Freestyle reading is 241 Original Note: Pt is alert and oriented X 1. She is talkative but content nonsensical. Pt denies pain or SOA and appears comfortable. She rests and appears to sleep most of the night. FSBS with glucometer reading at 318 compared to Freestyle reading of 349. Medicated with insulin per SS. Pt using [place] and brief for incontinence. She is able to ambulate short distances with assist of 1-2. 02 sats at 95 % with pt on 2 liters/nc.
[2024-11-25] MEDS: humaLOG 100 UNITS/ML 10ML VIAL (SSI) SUBCUT ×4 (06:12→20:31)
--- NOTE | 2024-11-25 06:15 | CA_ITS ---
APPROVED REPORT EXAM: Comprehensive 2D, Doppler, and color-flow Echocardiogram Cooling Pan Tender: JORDAN Katz, RVS Ht: 5 ft 6 in Wt: 170lbs BSA: 1.87 BP: 183/90 mmHg Indications: CHF, SOA, Murmur, Pacemaker, Left humeral fracture, UTI, Delirium, HTN , DM, HLD, Hypothyroidism,LVH Echo Enhancing Agent Comments: Patient supine throughout exam due to left humeral fracture: Limited windows 2D Dimensions IVSd 1.29 cm LVEF (Visual) 61.30 % PWd 0.95 cm LA Volume 66.60 mL LVDd 4.83 cm LA Volume Index [id number] mL/m2 (M/F) 16-34 LVDs 3.24 cm Left Atrium 4.02 cm M-Mode Dimensions RVDd 0.79 cm (0.9-2.6) LA Diam 4.25 cm (1.9-4.0) LVDd 4.99 cm (3.5-5.7) LVDs 3.44 cm (3.5-5.7) IVSd 1.61 cm (0.6-1.1) PWd 1.11 cm (0.6-1.1) EF (Teich) 58.50% EPSs 0.47 cm FS 31.10% EDV (Teich) 117.70 mL TAPSE 1.98 (<1.7) ESV (Teich) 48.80 mL LV Diastology E Decel Time 247 (160-240 msec) E/A Ratio 0.83 MED A' 7.30 cm/s LAT A' 7.20 cm/s Aortic Valve CARMELO Index 0.90 cm2/m2 AoV Peak Jose. 163.0 (50-130 cm/s) AI PHT 375.00 ms AO Peak GR. 10.60 mmHg AO Mean GR. 5.20 (<5 mmHg) AO VTI 29.5 (18-25 cm) CARMELO (VTI) 1.71 (2.5-4.5 cm2) Mitral Valve MV A Velocity 136.0 (40-130 cm/s) E/A Ratio 0.83 MV Mean Gr. 3.20 (<2mmHg) MV PHT 33.0 ms Tricuspid Valve TR P. Velocity 261.00 cm/s RAP Estimate 10.00 mmHg RVSP 37.30 mmHg Left Ventricle The left ventricle is normal size. The left ventricular systolic function is normal. The left ventricular ejection fraction is within the normal range. There is increased LV wall thikness. IVSd is 1.4 cm. The septum is asynchronous. Diastolic function is indeterminate due to presence of MAC. LVEF is 55%. Right Ventricle The right ventricle is normal size. The right ventricular systolic function is normal. Atria Left atrium is mildly dilated. Right atrium is mildly dilated. There is no Doppler evidence of interatrial shunt. Aortic Valve The aortic valve is mildly thickened. There is no aortic valvular stenosis. Mild aortic regurgitation. Mitral Valve Moderate mitral annular calcification is present. The mitral valve leaflets are mildly thickened. No evidence of mitral valve stenosis. Mean MV gradient 4 mmHg (HR 82 bpm). Mild mitral regurgitation. Tricuspid Valve Tricuspid valve is grossly normal in structure and function. Mild tricuspid regurgitation. RVSP is 25-30 mmHg. Pulmonic Valve The pulmonary valve is normal in structure. Mild pulmonic regurgitation. Great Vessels The aortic root is normal in size. The ascending aorta is not well visualized. IVC is normal in size and collapses >50% with inspiration. Pericardium Trivial, circumferential pericardial effusion is present. No echo indications of tamponade. Other Information Study Quality: Fair Conclusion Normal biventricular systolic function. Asynchronous septum. Marked increase in LV wall thickness. IVSd 1.4 cm. Biatrial dilation. Mild MR, mild AI, mild TR, mild AR. Trivial circumferential pericardial effusion. No echo indications of tamponade. In the setting of increased LV wall thickness, biatrial dilation, and presence of symptoms, further evaluation for infiltrative cardiomyopathy is recommended with cardiac MRI (amyloidosis protocol), PYP nuclear scan, and amyloidosis lab testing. Electronically signed by : Julianne Cabrera MD 11/25/2024 18:53:58
[2024-11-25 06:23] LABS: POC Glucose,Bedside 230 (70-110)
[2024-11-25 06:26] LABS: Basophils % 0.3 % (0.1-2.0); Eosinophils # 0.2 K/mm3 (0.0-0.4); Eosinophils % 2.8 % (0.1-12.0); Hematocrit 37.1 % (37.0-47.0); Hemoglobin 12.2 g/dL (12.2-16.2); Lymphocytes # 1.3 K/mm3 (0.7-4.5); Lymphocytes % 19.1 % (10-50); Mean Corpuscular HGB Conc 32.9 g/dL (31.8-35.4); Mean Corpuscular Hemoglobin 28.7 pg (27.0-31.2); Mean Corpuscular Volume 87.3 fl (81-99); Mean Platelet Volume 10.1 fl (7.4-10.4); Monocytes # 0.4 K/mm3 (0.1-1.0); Monocytes % 5.4 % (1.7-9.3); Neutrophils # 4.8 K/mm3 (1.8-7.8); Neutrophils % 72.1 % (37.0-80.0); Platelet Count 153 K/mm3 (142-424); Red Blood Count 4.25 M/mm3 (4.20-5.40); Red Cell Distribution Width 13.9 % (11.5-17.5); White Blood Count 6.7 K/mm3 (4.8-10.8)
[2024-11-25 06:39] LABS: Chol/HDL Ratio 3.9 (1-3.5); Cholesterol 113 mg/dl (140-200); HDL Cholesterol 29 mg/dl (40-60); Iron 66 ug/dL (37-170); Triglycerides 173 mg/dl (30-150); VLDL Cholesterol 35 mg/dL (0-40)
[2024-11-25 06:49] LABS: Total Iron Binding Capacity 68 ug/dL (265-497)
[2024-11-25 06:50] LABS: Direct LDL Cholesterol 41.02 mg/dL (100-129)
[2024-11-25 06:56] LABS: Chloride 99 mmol/L (98-107); Sodium 140 mmol/L (136-145)
[2024-11-25 06:57] LABS: Potassium 3.4 mmoL/L (3.5-5.1)
[2024-11-25 06:59] LABS: Alanine Aminotransferase 22 U/L (12-78); Albumin/Globulin Ratio 1.4 (1.1-1.8); Alkaline Phosphatase 130 U/L (38-126); Anion Gap 8.4 mEq/L (5-15); Aspartate Amino Transferase 35 U/L (14-36); Bilirubin,Total 0.7 mg/dl (0.2-1.3); Blood Urea Nitrogen 16 mg/dl (7-17); Carbon Dioxide 36 mmol/L (22.0-30.0); Creatinine Clearance Estimated 49 mL/min (50-200); Estimated Glomerular Filt Rate 48 ml/min (>60); GFR (African American) 58 ML/MIN (>60); Globulin 2.1 g/dL (1.3-3.2); Total Protein,Serum 5.1 g/dl (6.3-8.2)
[2024-11-25 07:00] LABS: Calcium 8.4 mg/dl (8.4-10.2); Glucose 228 mg/dl (74-100)
[2024-11-25 07:10] LABS: Thyroid Stimulating Hormone 1.71 uIU/mL (0.465-4.68)
[2024-11-25 07:14] LABS: Ferritin 369 ng/ml (11.1-264); Free T4 (Free Thyroxine) 1.18 ng/dl (0.78-2.19)
[2024-11-25 08:00] VITALS: BP 125/60; PULSE 86; TEMP 36.6; O2SAT 98
[2024-11-25 08:21] LABS: Hemoglobin A1C 8.3 % (4.0-6.0)
[2024-11-25] MEDS: CEFTRIAXONE 1 GM 1 GM in 0.9 % SODIUM CHLORIDE 50 ML IV (09:07)
[2024-11-25] MEDS: ENOXAPARIN 40MG/0.4ML SYRINGE 40 MG SUBCUT (09:07)
[2024-11-25] MEDS: LEVOTHYROXINE 100MCG (0.1MG) TAB 100 MCG PO (09:08)
[2024-11-25] MEDS: SPIRONOLACTONE 25MG TABLET 25 MG PO (09:08)
[2024-11-25] MEDS: FUROSEMIDE 40MG/4ML VIAL 40 MG IV (09:08)
[2024-11-25] MEDS: SERTRALINE 100MG TABLET 100 MG PO (09:08)
[2024-11-25] MEDS: METOPROLOL SUCCINATE XL 50MG TABLET 50 MG PO (09:08)
[2024-11-25 09:23] LABS: Procalcitonin 0.091 ng/mL (0.0-2.0)
--- NOTE | 2024-11-25 09:46 | HMH.OTEV ---
OT Inpatient Evaluation Rehab OT IP Evaluation Start: 11/24/24 19:22 Freq: ONCE Status: Active Protocol: Document 11/25/24 09:[address] [facility] (Rec: 11/25/24 09:[address] [facility] [id number]) Rehab OT IP Assessment Subjective History Pt oriented x 2 on arrival. Pt agreeable to engage in therapy evaluation. Pt admitted on 11/24/24 due to confusion and UTI. History and physical: Magdalena Mcmanus is a 79-year -old female with a medical history significant for type 2 diabetes, hypertension, hypothyroidism who presents with 2 weeks of intermittent confusion, shortness of breath . Daughter at bedside provides most history. They state patient was recently admitted to [facility] in September 2020 for for left humeral fracture that was treated nonoperatively. Discharged to rehab, and returned home with home health end of September. Since then, per daughter, patient has not been truly herself and for the past 2 weeks she is gotten much more confused, and has required 2 L nasal cannula continuously at home. She is also had a few falls at home. She lives with her , daughter at home. Denies fever /chills, chest pain, abdominal pain, constipation/diarrhea. Daughter does state her legs have been more swollen today. Workup in the ED significant for BNP 10,700, CXR suggestive of pulmonary edema, UA suggestive of UTI. Head CT unremarkable for acute findings. Case discussed with ED provider and decision was made to admit patient for acute metabolic encephalopathy , UTI, heart failure exacerbation. Subjective No I can usually do what I need. Pt reports prior to being in the hospital, pt lived at home with her and daughter . Pt claims she is normally independent with all ADLs. Her daughter does assist with all IADLs. Pt uses a cane during functional transfers. She no longer drives. Objective Patient Orientation Person,Birthday Right Upper Extremity Gross ROM WFL Left Upper Extremity Gross ROM WFL Bed Mobility bed mobility-scooting,bed mobility - supine/sit Assist Level Minimal x 1 (25% assist) Transfer Training Sit/Stand Transfer Assist Level Moderate x 1 (50% assist) Rehab OT IP prob,goals,plan Problems Date of Evaluation: 11/25/24 OT IP Problems Bed Mobility,Transfers,Balance ,Self care,Safety Rehab Potential Rehab Potential Good Equipment Needs Assistive Devices Rolling / Wheeled Walker Plan OT intervention Plan Bed Mobility,Transfers,Balance ,Self care,Safety,Therapeutic Exercise OT Plan Frequency Daily Duration LOS Discharge Goals Bed Mobility Ability Standby Assistance Sit to Stand Chair Transfer Ability Minimal x 1 (25% assist) Chair Transfer Ability Minimal x 1 (25% assist) Chair Transfer Technique Sit to/from Ambulatory Chair Transfer Assistive Devices Rolling Walker Feeding Ability Assist with Tray Set Up Lower Body Dressing Ability Moderate Assistance Upper Body Dressing Ability Minimal Assistance Bathing Ability Moderate Assistance Performing Toilet Hygiene Ability Minimal Assistance Overall Commode/Toilet Transfer Ability Minimal Assistance Commode/Toilet Transfer Technique Sit to/from Ambulatory Commode/Toilet Transfer Assistive Grab Bars Devices Oral Care Assist Standby Assistance Decrease in Endurance Yes Discharge Plan OT Discharge Plan Pt will continue to be seen for OT services while at [facility]. Pt presents below baseline at this time with functional transfers and ADL independence . Pt would benefit most at short term rehab at SNF following discharge. Continued skilled therapy is important in order for patient to improve strength, safety, endurance, ADL independence, and functional transfers to reach PLOF. Eval Complexity Eval Charge Codes 36032 - Moderate Complexity PHYSICIAN CERTIFICATION: I certify the specified therapy services for Magdalena Mcmanus are required, authorized, and reviewed every 30 days.
[2024-11-25 09:56] LABS: Vitamin B12 499 pg/mL (239-931)
[2024-11-25 10:12] VITALS: O2SAT 85
[2024-11-25 10:20] LABS: Folate > 20.00 ng/mL
--- NOTE | 2024-11-25 10:46 | HMH.PTEV ---
Physical Therapy Evaluation Rehab PT IP Evaluation Start: 11/24/24 19:22 Freq: ONCE Status: Active Protocol: Document 11/25/24 09:30 [facility] (Rec: 11/25/24 10:45 [facility]ORKE[facility] [id number]) Subjective/History History History 79-year-old female with a medical history significant for type 2 diabetes, hypertension, hypothyroidism who presents with 2 weeks of intermittent confusion, shortness of breath. She reports she lives with and daughter, no JIM the home , and she is generally independent with all ambulation using quad cane. Subjective Subjective Pt reports feeling off balance when upright, but no c/o pain or dizziness at this time. Rehab PT IP Eval Objective Appearance Patient Behavior Appropriate Patient Orientation Person,Place,Time Difficulty following instructions none Speech Pattern Clear Ambulation Patient Able to Ambulate Yes Ambulation Observation IP General Gait Pattern Observation Shuffling Step Ambulation Distance (feet) 5 Ambulation Assistive Device Small Base Quad Cane Ambulation Ability Minimal x 2 (25% assist) Balance Ability to Arise Able, uses arms to help Sitting Balance Steady, safe Standing Balance Unsteady Dynamic Sitting Balance Ability Good Dynamic Standing Balance Ability Poor Transfers Bed Transfer Ability Minimal x 1 (25% assist) Chair Transfer Ability Minimal x 2 (25% assist) Sit to Stand Bed Transfer Ability Minimal x 2 (25% assist) Sit to Stand Chair Transfer Ability Minimal x 2 (25% assist) ROM All Extremities PT ROM Status WFL MMT All Extremities PT MMT WFL Rehab PT IP prob,goals,plan Problems Date of Evaluation: 11/25/24 PT IP Problems Bed Mobility,Transfers,Gait Rehab Potential Rehab Potential Good Plan PT Intervention Plan Bed Mobility,Transfers,Gait, Balance,Therapeutic Exercise PT Plan Frequency Daily Duration LOS Discharge Goals Bed Transfer Ability Contact Guard/Hand Hold Sit to Stand Chair Transfer Ability Minimal x 1 (25% assist) Ambulation Assistive Device Small Base Quad Cane,Rolling Walker Ambulation Distance (feet) 25 Discharge Plan PT Discharge Plan Pt is currently most appropriate for rehab placement once medically stable for d/c. Skilled therapy is indicate to improve static and dynamic standing balance, improve safe ambulation ability, and increase general endurance to all upright activities on order to aid pt return to PLOF . Eval Complexity Eval Charge Codes 03623 - High Complexity PHYSICIAN CERTIFICATION: I certify the specified therapy services for Magdalena Mcmanus are required, authorized, and reviewed every 30 days.
--- NOTE | 2024-11-25 13:15 | SW/DCPLANNER ---
Addendum entered by [facility] 11/27/24 11:51: [facility] is able to accept patient and family concurs w/ this plan. Patient will discharge tomorrow pending no setbacks. The 's phone: [phone] fax: [phone] pharmacy: [facility] [place] Addendum entered by [facility] 11/27/24 08:49: Daughter is also agreeable for information to be faxed to [facility] and [facility]. Addendum entered by [facility] 11/27/24 08:24: I did speak w/ patient's daughter regarding other facilities. Daughter would like to reach out to other family members/friends about other facilities but is agreeable for information to be faxed to [place]. Addendum entered by [facility] 11/27/24 07:31: Updated patient information faxed to [facility]. Addendum entered by [facility] 11/26/24 14:44: Patient is currently established w/ [facility]. Addendum entered by [facility] 11/26/24 10:33: Per Laura she can accept this patient SNF level of care once medically stable for discharge. I will continue to follow up w/ patient, family, and [facility]. Addendum entered by Miladis Wheeling 11/25/24 14:35: [facility] plans to do a bedside evaluation w/ patient and family. Original Note: I spoke w/ patient's daughter (POA) regarding plans once medically stable for discharge. PT/OT evaluated patient and recommended SNF level of care. Daughter prefers patient information to be faxed to [facility]. [facility] confirmed a female bed will be available at the end of the week. Patient information will be faxed to [facility]. Discharge date is unknown at this time. I will continue to follow up.
[2024-11-25 16:00] VITALS: BP 152/73; PULSE 82; RESP 16; O2SAT 95
[2024-11-25] MEDS: POTASSIUM CHLORIDE 20MEQ TAB 40 MEQ PO ×2 (16:42→20:19)
[2024-11-25] MEDS: hydrOXYzine pamoate 25MG CAPSULE 25 MG PO (16:45)
[2024-11-25 16:50] LABS: POC Glucose,Bedside 323 (70-110)
[2024-11-25] MEDS: HALOPERIDOL LACTATE 5 MG/ML VIAL 2 MG IV (18:34)
[2024-11-25 20:00] VITALS: BP 165/57; PULSE 94; RESP 18; TEMP 36.7; O2SAT 98
[2024-11-25] MEDS: OLANZapine 5 MG ODT TABLET SL (20:20)
[2024-11-25] MEDS: FAMOTIDINE 20MG TABLET 20 MG PO (20:20)
[2024-11-25] MEDS: ISOSORBIDE MONO 30MG TAB.ER.24H 30 MG PO (20:20)
[2024-11-25] MEDS: ATORVASTATIN 40MG TABLET 40 MG PO (20:20)
[2024-11-25] MEDS: INSULIN GLARGINE 100 UNITS/ML 10ML VIAL 15 UNIT SUBCUT (20:33)
[2024-11-25 20:40] LABS: POC Glucose,Bedside 281 (70-110)
--- NOTE | 2024-11-25 21:42 | P.PN_ITS ---
Subjective *Date: 11/25/24 *Time: 21:42 Interval history: Continues to wax and wane and confusion, will consider MRI in the morning if it does not improve. Pending urine culture speciation. Added spironolactone for HFpEF diuresis. Exam Data for Last 24 hours Vital signs and Labs for Last 24 Hours: Temp Pulse Resp BP Pulse Ox O2 Del Method O2 Flow Rate 98.1 F 94 H 18 165/57 H 98 Nasal Cannula 2 11/25/24 20:00 11/25/24 20:00 11/25/24 20:00 11/25/24 20:00 11/25/24 20:00 11/25/24 20:00 11/25/24 20:00 Laboratory Results - last 24 hr 11/24/24 10:00: Urine Color Yellow, Urine Appearance Clear, Urine pH 6.5, Ur Specific [place] 1.025, Urine Protein 3+ A, Urine Glucose (UA) 1+, Urine Ketones Negative, Urine Blood 1+ A, Urine Nitrate Positive A, Urine Bilirubin Negative, Urine Urobilinogen 1.0, Ur Leukocyte Esterase Negative, Urine RBC Occasional, Urine WBC 20-50, Ur Squamous Epith Cells 3-5, Urine Bacteria 1+ 11/25/24 05:47: WBC 6.7, RBC 4.25, Hgb 12.2, Hct 37.1, MCV 87.3, MCH 28.7, MCHC 32.9, RDW 13.9, Plt Count 153, MPV 10.1, Neut % (Auto) 72.1, Lymph % (Auto) 19.1, [place] % (Auto) 5.4, Eos % (Auto) 2.8, Baso % (Auto) 0.3, Neut # (Auto) 4.8, Lymph # (Auto) 1.3, [place] # (Auto) 0.4, Eos # (Auto) 0.2, Baso # (Auto) 0.0, Sodium 140, Potassium 3.4 L, Chloride 99, Carbon Dioxide 36 H, Anion Gap 8.4, BUN 16, Creatinine 1.10 H, Estimated Creat Clear 49, Estimated GFR 48 L, Est GFR ( Amer) 58 L, Glucose 228 H, Hemoglobin A1c 8.3 H, Calcium 8.4, Magnesium 2.0 D, Iron 66, TIBC 68 L, Iron Saturation 97.78943 H, Ferritin 369 H, Total Bilirubin 0.7, AST 35, ALT 22, Alkaline Phosphatase 130 H, Total Protein 5.1 L, Albumin 3.0 L D, Globulin 2.1, Albumin/Globulin Ratio 1.4, Triglycerides 173 H, Cholesterol 113 L, LDL Cholesterol Direct 41.02 L, VLDL Cholesterol 35, HDL Cholesterol 29 L, Cholesterol/HDL Ratio 3.9 H, Vitamin B12 499, 25-OH Vitamin D Total 33.0, Folate > 20.00, Procalcitonin 0.091, TSH 1.71 D, Free T4 1.18 11/25/24 06:10: POC Glucose 230 H 11/25/24 16:41: POC Glucose 323 H* 11/25/24 20:24: POC Glucose 281 H I & O for Last 24 hours: Intake & Output 11/22/24 11/23/24 11/24/24 11/25/24 23:59 23:59 23:59 23:59 Intake Total 540 / 540 1290 / 1290 Output Total 0 / 0 600 / 600 Balance 540 / 540 690 / 690 Weight 77.292 kg 76.657 kg Microbiology Reports for the Last 24 Hours: Microbiology 11/24/24 11:30 Blood Blood Culture - Preliminary NO GROWTH AFTER 24 HOURS 11/24/24 10:08 Blood Blood Culture - Preliminary NO GROWTH AFTER 24 HOURS 11/24/24 10:00 Urine,Clean Catch Urine Culture - Preliminary Gram Positive Cocci Constitutional Constitutional: no acute distress *Routine HEENT Exam Head: Present normocephalic Eye: Present EOMI and PERRL ENT: Present mucous membranes moist *Routine Neck Exam Neck: Present supple; Absent lymphadenopathy *Routine Respiratory Exam Respiratory: Present CTA bilaterally *Routine Cardiovascular Exam Cardiovascular: Present RRR *Routine Abdominal Exam Abdominal: Present soft and normoactive bowel sounds; Absent tenderness *Routine Extremities Exam Extremities: Absent cyanosis, clubbing or edema *Routine Skin Exam Skin: Present warm; Absent rash *Routine Neurological Exam Neurological: Present alert Assessment and Plan *Assessment and plan (1) Type 2 diabetes mellitus: Status: Acute Qualifiers: Diabetes mellitus extermination supervisor insulin use: without extermination supervisor use Diabetes mellitus complication status: without complication Qualified Code(s): E11.9 - Type 2 diabetes mellitus without complications Category: Medical Code(s): E11.9 - Type 2 diabetes mellitus without complications Plan Magdalena Mcmanus is a 79-year-old female with a medical history significant for type 2 diabetes, hypertension, hypothyroidism who presents with 2 weeks of intermittent confusion, shortness of breath. Daughter at bedside provides most history. They state patient was recently admitted to [facility] in September 2020 for for left humeral fracture that was treated nonoperatively. Discharged to rehab, and returned home with home health end of September. Since then, per daughter, patient has not been truly herself and for the past 2 weeks she is gotten much more confused, and has required 2 L nasal cannula continuously at home. She is also had a few falls at home. She lives with her , daughter at home. Denies fever/chills, chest pain, abdominal pain, constipation/diarrhea. Daughter does state her legs have been more swollen today. Workup in the ED significant for BNP 10,700, CXR suggestive of pulmonary edema, UA suggestive of UTI. Head CT unremarkable for acute findings. Case discussed with ED provider and decision was made to admit patient for acute metabolic encephalopathy, UTI, heart failure exacerbation. #Acute metabolic encephalopathy #UTI ? Patient continues to be intermittently confused today, likely superimposed hospital-acquired delirium. IV Haldol as needed for agitation. ? UA grossly abnormal, urine culture growing gram-positive cocci. Pending speciation and sensitivities. ? IV ceftriaxone day 2/5. ? Follow-up urine culture. Blood culture NGTD 24 hours. ? TFTs, B12, folate, iron studies normal. Vitamin D 33, will start oral vitamin D. ? Consider brain MRI in the morning if confusion does not improve. #Acute hypoxic respiratory failure # HFpEF exacerbation ? BNP elevated 10,700, CXR with pulmonary edema. ? Requiring 2 L continuous nasal cannula, new requirement. ? IV Lasix 40 mg daily. Follow-up urine output, renal function, electrolytes. ? Started spironolactone 25 mg further diuresing. ? Continue home Imdur 30 mg. ? ECHO reveals normal biventricular function, but marked increase in LV wall thickness. #Type 2 diabetes ? LDSSI, ACHS glucose checks. ? Hemoglobin A1c 8.3, not at goal. ? Started Lantus 15 units nightly. #Hypothyroidism ? Resume home levothyroxine 100 mcg. TFTs normal during admission. #CKD ? Stable. Continue monitor. Full code DVT prophylaxis: Lovenox 40 mg
[2024-11-26] VITALS: BP 147/84; PULSE 76; RESP 18; TEMP 37.2; O2SAT 97
[2024-11-26 04:00] VITALS: BP 106/44; PULSE 81; RESP 19; TEMP 36.8; O2SAT 93; BMI 26.4
--- NOTE | 2024-11-26 05:02 | PC.NURSE ---
no significant changes from previous shift. pt has slept all night. alert x3, was able to answer all questions correctly except the year and exactly which facility she was at. bed alarm on for pt safety. no concerns at this time
[2024-11-26 05:50] LABS: POC Glucose,Bedside 240 (70-110)
[2024-11-26] MEDS: humaLOG 100 UNITS/ML 10ML VIAL (SSI) SUBCUT ×4 (06:02→21:34)
[2024-11-26] MEDS: LEVOTHYROXINE 100MCG (0.1MG) TAB 100 MCG PO (06:02)
[2024-11-26 06:56] LABS: Basophils % 0.6 % (0.1-2.0); Eosinophils # 0.2 K/mm3 (0.0-0.4); Eosinophils % 3.1 % (0.1-12.0); Hemoglobin 12.6 g/dL (12.2-16.2); Lymphocytes # 1.3 K/mm3 (0.7-4.5); Mean Corpuscular HGB Conc 31.5 g/dL (31.8-35.4); Mean Corpuscular Hemoglobin 28.2 pg (27.0-31.2); Mean Corpuscular Volume 89.5 fl (81-99); Mean Platelet Volume 9.6 fl (7.4-10.4); Monocytes # 0.4 K/mm3 (0.1-1.0); Monocytes % 5.7 % (1.7-9.3); Neutrophils % 71.3 % (37.0-80.0); Platelet Count 138 K/mm3 (142-424); Red Blood Count 4.47 M/mm3 (4.20-5.40); Red Cell Distribution Width 13.9 % (11.5-17.5)
[2024-11-26 07:08] LABS: Albumin Level 3.5 g/dl (3.5-5.0); Chloride 100 mmol/L (98-107)
[2024-11-26 07:09] LABS: Sodium 139 mmol/L (136-145)
[2024-11-26 07:11] LABS: Alanine Aminotransferase 24 U/L (12-78); Albumin/Globulin Ratio 1.4 (1.1-1.8); Aspartate Amino Transferase 47 U/L (14-36); Bilirubin,Total 0.7 mg/dl (0.2-1.3); Blood Urea Nitrogen 21 mg/dl (7-17); Carbon Dioxide 32 mmol/L (22.0-30.0); Creatinine Clearance Estimated 43 mL/min (50-200); Estimated Glomerular Filt Rate 43 ml/min (>60); GFR (African American) 52 ML/MIN (>60); Globulin 2.5 g/dL (1.3-3.2)
[2024-11-26 07:12] LABS: Alkaline Phosphatase 130 U/L (38-126); Calcium 8.5 mg/dl (8.4-10.2); Glucose 232 mg/dl (74-100)
[2024-11-26] MEDS: FUROSEMIDE 40MG/4ML VIAL 40 MG IV ×2 (07:45→16:04)
[2024-11-26] MEDS: METOPROLOL SUCCINATE XL 50MG TABLET 50 MG PO (07:45)
[2024-11-26] MEDS: CEFTRIAXONE 1 GM 1 GM in 0.9 % SODIUM CHLORIDE 50 ML IV (07:46)
[2024-11-26] MEDS: ENOXAPARIN 40MG/0.4ML SYRINGE 40 MG SUBCUT (07:46)
[2024-11-26] MEDS: SERTRALINE 100MG TABLET 100 MG PO (07:46)
[2024-11-26] MEDS: SPIRONOLACTONE 25MG TABLET 25 MG PO (07:46)
[2024-11-26 08:00] VITALS: BP 198/98; PULSE 77; RESP 18; TEMP 36.4; O2SAT 97
[2024-11-26] MEDS: CHOLECALCIFEROL 1,000 UNITS (25MCG) TABLET 50 MCG PO (08:18)
[2024-11-26 10:14] LABS: POC Glucose,Bedside 282 (70-110)
[2024-11-26] MEDS: levoFLOXacin 750 MG TABLET PO (11:44)
[2024-11-26 12:00] VITALS: BMI 26.4
[2024-11-26 12:05] VITALS: BP 190/90; PULSE 90; RESP 18; TEMP 36.6; O2SAT 98
--- NOTE | 2024-11-26 12:06 | HMH.ITSTN ---
pt had a head mri ordered, unable to do exam due to the patient having a pacemaker. JHOANA Pandya notified and said he would relay information to ordering MD. ordered cancelled.
--- NOTE | 2024-11-26 14:05 | EXP.PN ---
Subjective *Date: 11/26/24 *Time: 14:05 Interval history: Continues to be intermittently confused, unable to perform MRI due to pacemaker. Urine culture growing Enterococcus, switch to Levaquin. Will follow-up confusion with these changes. Pending placement. Exam Data for Last 24 hours Vital signs and Labs for Last 24 Hours: Temp Pulse Resp BP Pulse Ox O2 Del Method O2 Flow Rate 97.8 F 90 18 190/90 H 98 Nasal Cannula 2 11/26/24 12:05 11/26/24 12:05 11/26/24 12:05 11/26/24 12:05 11/26/24 12:05 11/26/24 12:18 11/26/24 12:18 Laboratory Results - last 24 hr 11/25/24 16:41: POC Glucose 323 H* 11/25/24 20:24: POC Glucose 281 H 11/26/24 05:43: POC Glucose 240 H 11/26/24 06:17: WBC 7.0, RBC 4.47, Hgb 12.6, Hct 40.0, MCV 89.5, MCH 28.2, MCHC 31.5 L, RDW 13.9, Plt Count 138 L, MPV 9.6, Neut % (Auto) 71.3, Lymph % (Auto) 19.0, [place] % (Auto) 5.7, Eos % (Auto) 3.1, Baso % (Auto) 0.6, Neut # (Auto) 5.0, Lymph # (Auto) 1.3, [place] # (Auto) 0.4, Eos # (Auto) 0.2, Baso # (Auto) 0.0, Sodium 139, Potassium 4.0, Chloride 100, Carbon Dioxide 32 H, Anion Gap 11.0, BUN 21 H D, Creatinine 1.20 H, Estimated Creat Clear 43, Estimated GFR 43 L, Est GFR ( Amer) 52 L, Glucose 232 H, Calcium 8.5, Magnesium 2.0, Total Bilirubin 0.7, AST 47 H D, ALT 24, Alkaline Phosphatase 130 H, Total Protein 6.0 L, Albumin 3.5 D, Globulin 2.5, Albumin/Globulin Ratio 1.4 11/26/24 10:07: POC Glucose 282 H I & O for Last 24 hours: Intake & Output 11/23/24 11/24/24 11/25/2413/25 23:59 23:59 23:59 23:59 Intake Total 540 / 540 1290 / 1290 320 / 320 Output Total 0 / 0 600 / 600 500 / 500 Balance 540 / 540 690 / 690 -180 / -180 Weight 77.292 kg 76.657 kg 74.66 kg Microbiology Reports for the Last 24 Hours: Microbiology 11/24/24 10:08 Blood Blood Culture - Preliminary NO GROWTH AFTER 48 HOURS 11/24/24 10:00 Urine,Clean Catch Urine Culture - Final Enterococcus faecalis 11/24/24 11:30 Blood Blood Culture - Preliminary Constitutional Constitutional: no acute distress *Routine HEENT Exam Head: Present normocephalic Eye: Present EOMI and PERRL ENT: Present mucous membranes moist *Routine Neck Exam Neck: Present supple; Absent lymphadenopathy *Routine Respiratory Exam Respiratory: Present CTA bilaterally *Routine Cardiovascular Exam Cardiovascular: Present RRR *Routine Abdominal Exam Abdominal: Present soft and normoactive bowel sounds; Absent tenderness *Routine Extremities Exam Extremities: Absent cyanosis, clubbing or edema *Routine Skin Exam Skin: Present warm; Absent rash *Routine Neurological Exam Neurological: Present alert Assessment and Plan *Assessment and plan (1) Type 2 diabetes mellitus: Status: Acute Qualifiers: Diabetes mellitus skilled nursing insulin use: without superintendent terminal use Diabetes mellitus complication status: without complication Qualified Code(s): E11.9 - Type 2 diabetes mellitus without complications Category: Medical Code(s): E11.9 - Type 2 diabetes mellitus without complications Plan Magdalena Mcmanus is a 79-year-old female with a medical history significant for type 2 diabetes, hypertension, hypothyroidism who presents with 2 weeks of intermittent confusion, shortness of breath. Daughter at bedside provides most history. They state patient was recently admitted to [facility] in September 2020 for for left humeral fracture that was treated nonoperatively. Discharged to rehab, and returned home with home health end of September. Since then, per daughter, patient has not been truly herself and for the past 2 weeks she is gotten much more confused, and has required 2 L nasal cannula continuously at home. She is also had a few falls at home. She lives with her , daughter at home. Denies fever/chills, chest pain, abdominal pain, constipation/diarrhea. Daughter does state her legs have been more swollen today. Workup in the ED significant for BNP 10,700, CXR suggestive of pulmonary edema, UA suggestive of UTI. Head CT unremarkable for acute findings. Case discussed with ED provider and decision was made to admit patient for acute metabolic encephalopathy, UTI, heart failure exacerbation. #Acute metabolic encephalopathy #UTI ? Patient continues to be intermittently confused today, likely superimposed hospital-acquired delirium. IV Haldol as needed for agitation. ? UA grossly abnormal, urine culture growing Enterococcus faecalis. Will switch to Levaquin based on sensitivities. ? Started Levaquin day 1, discontinued ceftriaxone. ? TFTs, B12, folate, iron studies, blood culture normal. Vitamin D 33, continue oral vitamin D. ? Unable to obtain MRI due to patient's pacemaker. #Acute hypoxic respiratory failure # HFpEF exacerbation ? BNP elevated 10,700, CXR with pulmonary edema. ? Requiring 2 L continuous nasal cannula, new requirement. Wean as tolerated. ? Increased Lasix to 40 mg twice daily. Follow-up urine output, renal function, electrolytes. ? Continue spironolactone 25 mg, home Imdur 30 mg. ? ECHO reveals normal biventricular function, but marked increase in LV wall thickness. #Physical deconditioning ? PT/OT consulted, recommended SNF. Has offer from [facility], pending prior authorization. #Type 2 diabetes ? LDSSI, ACHS glucose checks. ? Hemoglobin A1c 8.3, not at goal. ? Started Lantus 15 units nightly. #Hypothyroidism ? Resume home levothyroxine 100 mcg. TFTs normal during admission. #CKD ? Stable. Continue monitor. Full code DVT prophylaxis: Lovenox 40 mg
[2024-11-26 16:00] VITALS: BP 164/71; PULSE 76; RESP 18; TEMP 36.8; O2SAT 98
[2024-11-26 16:07] LABS: POC Glucose,Bedside 373 (70-110)
--- NOTE | 2024-11-26 16:19 | PC.NURSE ---
Aox 2 with confusion noted, fsbg achs 16:00 was 373, 02-2L nc sats in the 90's, bed alarm active, purewick in place, 20g L AC SL, placement to [place].
[2024-11-26 20:00] VITALS: BP 164/81; PULSE 78; RESP 18; TEMP 36.7; O2SAT 98
[2024-11-26] MEDS: FAMOTIDINE 20MG TABLET 20 MG PO (20:06)
[2024-11-26] MEDS: ISOSORBIDE MONO 30MG TAB.ER.24H 30 MG PO (20:06)
[2024-11-26] MEDS: OLANZapine 5 MG ODT TABLET SL (20:06)
[2024-11-26] MEDS: INSULIN GLARGINE 100 UNITS/ML 3ML FLEXPEN 15 UNIT SUBCUT (20:06)
[2024-11-26] MEDS: ATORVASTATIN 40MG TABLET 40 MG PO (20:08)
[2024-11-26 21:39] LABS: POC Glucose,Bedside 318 (70-110)
[2024-11-27] MEDS: HALOPERIDOL LACTATE 5 MG/ML VIAL 2 MG IV ×2 (00:29→06:04)
[2024-11-27 04:00] VITALS: BP 177/73; PULSE 78; RESP 18; TEMP 36.6; O2SAT 97; BMI 26.6
[2024-11-27] MEDS: humaLOG 100 UNITS/ML 10ML VIAL (SSI) SUBCUT ×4 (05:50→21:09)
[2024-11-27] MEDS: LEVOTHYROXINE 100MCG (0.1MG) TAB 100 MCG PO (05:51)
--- NOTE | 2024-11-27 06:14 | PC.NURSE ---
pt has not slept much t/o night and has had increased confusion and agitation, (picking at iv, trying to get out of bed and refusing help from nursing, suspicious of staff) , treated per mar with relief for a couple of hrs after administration. bed alarm on for pt safety and cb within reach
[2024-11-27 06:48] LABS: POC Glucose,Bedside 196 (70-110)
[2024-11-27 07:08] LABS: Albumin Level 3.2 g/dl (3.5-5.0); Chloride 97 mmol/L (98-107); Potassium 3.3 mmoL/L (3.5-5.1); Sodium 137 mmol/L (136-145)
[2024-11-27 07:10] LABS: Alanine Aminotransferase 21 U/L (12-78); Aspartate Amino Transferase 34 U/L (14-36); Bilirubin,Total 0.5 mg/dl (0.2-1.3); Blood Urea Nitrogen 27 mg/dl (7-17); Creatinine Clearance Estimated 35 mL/min (50-200); Estimated Glomerular Filt Rate 33 ml/min (>60); GFR (African American) 40 ML/MIN (>60)
[2024-11-27 07:11] LABS: Albumin/Globulin Ratio 1.4 (1.1-1.8); Alkaline Phosphatase 112 U/L (38-126); Anion Gap 6.3 mEq/L (5-15); Calcium 8.4 mg/dl (8.4-10.2); Carbon Dioxide 37 mmol/L (22.0-30.0); Globulin 2.3 g/dL (1.3-3.2); Glucose 223 mg/dl (74-100); Magnesium 1.8 mg/dl (1.6-2.3); Total Protein,Serum 5.5 g/dl (6.3-8.2)
[2024-11-27 07:36] LABS: Basophils % 0.3 % (0.1-2.0); Eosinophils # 0.2 K/mm3 (0.0-0.4); Eosinophils % 3.3 % (0.1-12.0); Hematocrit 34.4 % (37.0-47.0); Lymphocytes # 1.3 K/mm3 (0.7-4.5); Lymphocytes % 19.5 % (10-50); Mean Corpuscular Volume 87.5 fl (81-99); Monocytes # 0.4 K/mm3 (0.1-1.0); Monocytes % 6.1 % (1.7-9.3); Neutrophils # 4.7 K/mm3 (1.8-7.8); Neutrophils % 70.5 % (37.0-80.0); Platelet Count 126 K/mm3 (142-424); Red Blood Count 3.93 M/mm3 (4.20-5.40); Red Cell Distribution Width 13.5 % (11.5-17.5); White Blood Count 6.7 K/mm3 (4.8-10.8)
[2024-11-27 07:50] VITALS: BP 153/69; PULSE 86; RESP 17; TEMP 36.6; O2SAT 97
[2024-11-27] MEDS: SPIRONOLACTONE 25MG TABLET 25 MG PO (08:15)
[2024-11-27] MEDS: MAGNESIUM SULFATE IN WATER 2 GM/50 ML PIGGYBACK IV (08:15)
[2024-11-27] MEDS: FUROSEMIDE 40MG/4ML VIAL 40 MG IV ×2 (08:15→15:52)
[2024-11-27] MEDS: POTASSIUM CHLORIDE 20MEQ TAB 40 MEQ PO ×2 (08:15→13:28)
[2024-11-27] MEDS: CHOLECALCIFEROL 1,000 UNITS (25MCG) TABLET 50 MCG PO (08:15)
[2024-11-27] MEDS: SERTRALINE 100MG TABLET 100 MG PO (08:16)
[2024-11-27] MEDS: METOPROLOL SUCCINATE XL 50MG TABLET 50 MG PO (08:16)
[2024-11-27] MEDS: ENOXAPARIN 40MG/0.4ML SYRINGE 40 MG SUBCUT (08:16)
--- NOTE | 2024-11-27 14:35 | PC.NURSE ---
Pt. should be discharged to [facility] in [place], [place] tomorrow. [phone]
[2024-11-27 16:00] VITALS: BP 162/64; PULSE 78; RESP 17; TEMP 36.8; O2SAT 99
[2024-11-27 16:02] LABS: POC Glucose,Bedside 336 (70-110)
--- NOTE | 2024-11-27 18:03 | P.PN_ITS ---
Subjective *Date: 11/27/24 *Time: 18:06 Interval history: Continues to be intermittently confused, agitated. Unfortunately workup thus far has been unremarkable, other than UTI that is being treated. Referred to neurology at [facility] in [place]. Will discharge to [facility] tomorrow. Exam Data for Last 24 hours Vital signs and Labs for Last 24 Hours: Temp Pulse Resp BP Pulse Ox O2 Del Method O2 Flow Rate 98.2 F 78 17 162/64 H 99 Nasal Cannula 2 11/27/24 16:00 11/27/24 16:00 11/27/24 16:00 11/27/24 16:00 11/27/24 16:00 11/27/24 16:48 11/27/24 16:48 Laboratory Results - last 24 hr 11/26/24 21:30: POC Glucose 318 H* 11/27/24 05:44: POC Glucose 196 H 11/27/24 06:27: WBC 6.7, RBC 3.93 L, Hgb 11.0 L, Hct 34.4 L, MCV 87.5, MCH 28.0, MCHC 32.0, RDW 13.5, Plt Count 126 L, MPV 10.0, Neut % (Auto) 70.5, Lymph % (Auto) 19.5, [place] % (Auto) 6.1, Eos % (Auto) 3.3, Baso % (Auto) 0.3, Neut # (Auto) 4.7, Lymph # (Auto) 1.3, [place] # (Auto) 0.4, Eos # (Auto) 0.2, Baso # (Auto) 0.0, Sodium 137, Potassium 3.3 L, Chloride 97 L, Carbon Dioxide 37 H, Anion Gap 6.3, BUN 27 H D, Creatinine 1.50 H D, Estimated Creat Clear 35, Estimated GFR 33 L, Est GFR ( Amer) 40 L D, Glucose 223 H, Calcium 8.4, Magnesium 1.8, Total Bilirubin 0.5, AST 34 D, ALT 21, Alkaline Phosphatase 112, Total Protein 5.5 L, Albumin 3.2 L, Globulin 2.3, Albumin/Globulin Ratio 1.4 11/27/24 15:54: POC Glucose 336 H* I & O for Last 24 hours: Intake & Output 11/24/24 11/25/24 11/26/2414/25 23:59 23:59 23:59 23:59 Intake Total 540 / 540 1290 / 1290 950 / 950 250 / 250 Output Total 0 / 0 600 / 600 500 / 500 1050 / 1050 Balance 540 / 540 690 / 690 450 / 450 -800 / -800 Weight 77.292 kg 76.657 kg 74.66 kg 75.251 kg Microbiology Reports for the Last 24 Hours: Microbiology 11/24/24 11:30 Blood Blood Culture - Preliminary Constitutional Constitutional: no acute distress Comments: Intermittently confused. *Routine HEENT Exam Head: Present normocephalic Eye: Present EOMI and PERRL ENT: Present mucous membranes moist *Routine Neck Exam Neck: Present supple; Absent lymphadenopathy *Routine Respiratory Exam Respiratory: Present CTA bilaterally *Routine Cardiovascular Exam Cardiovascular: Present RRR *Routine Abdominal Exam Abdominal: Present soft and normoactive bowel sounds; Absent tenderness *Routine Extremities Exam Extremities: Absent cyanosis, clubbing or edema *Routine Skin Exam Skin: Present warm; Absent rash *Routine Neurological Exam Neurological: Present alert Assessment and Plan *Assessment and plan (1) Type 2 diabetes mellitus: Status: Acute Qualifiers: Diabetes mellitus complication status: without complication Diabetes mellitus termite control service representative insulin use: without termite control service representative use Qualified Code(s): E11.9 - Type 2 diabetes mellitus without complications Category: Medical Code(s): E11.9 - Type 2 diabetes mellitus without complications Plan Magdalena Mcmanus is a 79-year-old female with a medical history significant for type 2 diabetes, hypertension, hypothyroidism who presents with 2 weeks of intermittent confusion, shortness of breath. Daughter at bedside provides most history. They state patient was recently admitted to [facility] in September 2020 for for left humeral fracture that was treated nonoperatively. Discharged to rehab, and returned home with home health end of September. Since then, per daughter, patient has not been truly herself and for the past 2 weeks she is gotten much more confused, and has required 2 L nasal cannula continuously at home. She is also had a few falls at home. She lives with her , daughter at home. Denies fever/chills, chest pain, abdominal pain, constipation/diarrhea. Daughter does state her legs have been more swollen today. Workup in the ED significant for BNP 10,700, CXR suggestive of pulmonary edema, UA suggestive of UTI. Head CT unremarkable for acute findings. Case discussed with ED provider and decision was made to admit patient for acute metabolic encephalopathy, UTI, heart failure exacerbation. #Acute metabolic encephalopathy #UTI ? Patient continues to be intermittently confused/agitated, likely superimposed hospital-acquired delirium. Discontinue IV Haldol as needed to transition to SNF tomorrow. ? UA grossly abnormal, urine culture growing Enterococcus faecalis. Switched to Levaquin based on sensitivities. ? Continue Levaquin day 2, discontinued ceftriaxone. ? TFTs, B12, folate, iron studies, blood culture normal. Vitamin D 33, continue oral vitamin D. ? Unable to obtain MRI due to patient's pacemaker. ? Patient will need further workup for intermittent confusion, dementia may be at play. Referred to [facility] neurology at [place]. #Acute hypoxic respiratory failure # HFpEF exacerbation ? BNP elevated 10,700, CXR with pulmonary edema. ? Requiring 2 L continuous nasal cannula, new requirement. Wean as tolerated. ? Has had -1350 mL output over last 24 hours. ? Continue Lasix to 40 mg twice daily. Follow-up urine output, renal function, electrolytes. ? Continue spironolactone 25 mg, home Imdur 30 mg. ? ECHO reveals normal biventricular function, but marked increase in LV wall thickness. ? Plan to transition to Lasix 40 mg daily tomorrow. #Physical deconditioning ? PT/OT consulted, recommended SNF. Case discussed with case management, the [facility] SNF graciously accepted patient, will be able to take her tomorrow 11/28/24. #Type 2 diabetes ? LDSSI, ACHS glucose checks. ? Hemoglobin A1c 8.3, not at goal. ? Increased Lantus 25 units nightly. ? Started metformin 500 mg twice daily. Uptitrate as tolerated. #Hypothyroidism ? Resume home levothyroxine 100 mcg. TFTs normal during admission. #CKD ? Stable. Continue monitor. Full code DVT prophylaxis: Lovenox 40 mg
[2024-11-27] MEDS: ATORVASTATIN 40MG TABLET 40 MG PO (21:06)
[2024-11-27] MEDS: OLANZapine 5 MG ODT TABLET SL (21:06)
[2024-11-27] MEDS: ISOSORBIDE MONO 30MG TAB.ER.24H 30 MG PO (21:06)
[2024-11-27] MEDS: INSULIN GLARGINE 100 UNITS/ML 3ML FLEXPEN 25 UNIT SUBCUT (21:07)
[2024-11-27 22:38] LABS: POC Glucose,Bedside 201 (70-110)
[2024-11-28] VITALS: BP 168/57; PULSE 85; RESP 17; TEMP 36.3; O2SAT 90
[2024-11-28 04:00] VITALS: BMI 27.0
--- NOTE | 2024-11-28 05:21 | PC.NURSE ---
pt has slept all night and been pleasant. still asleeo, cb within reach and bed alarm on for pt safety
[2024-11-28 06:04] LABS: POC Glucose,Bedside 273 (70-110)
[2024-11-28] MEDS: humaLOG 100 UNITS/ML 10ML VIAL (SSI) SUBCUT ×2 (06:41→11:40)
[2024-11-28] MEDS: LEVOTHYROXINE 100MCG (0.1MG) TAB 100 MCG PO (06:41)
--- NOTE | 2024-11-28 06:44 | PC.NURSE ---
pt has slept all night. dexcom removed from left upper arm. bruise noted to site. tolerated well. cb within reach and bed alarm on for pt safety.
[2024-11-28 07:42] LABS: Basophils % 0.3 % (0.1-2.0); Eosinophils # 0.3 K/mm3 (0.0-0.4); Hematocrit 37.1 % (37.0-47.0); Hemoglobin 11.8 g/dL (12.2-16.2); Lymphocytes # 1.1 K/mm3 (0.7-4.5); Lymphocytes % 17.6 % (10-50); Mean Corpuscular HGB Conc 31.8 g/dL (31.8-35.4); Mean Corpuscular Hemoglobin 28.4 pg (27.0-31.2); Mean Corpuscular Volume 89.4 fl (81-99); Mean Platelet Volume 9.8 fl (7.4-10.4); Monocytes # 0.4 K/mm3 (0.1-1.0); Monocytes % 5.8 % (1.7-9.3); Neutrophils # 4.5 K/mm3 (1.8-7.8); Neutrophils % 72.1 % (37.0-80.0); Platelet Count 136 K/mm3 (142-424); Red Blood Count 4.15 M/mm3 (4.20-5.40); Red Cell Distribution Width 13.7 % (11.5-17.5); White Blood Count 6.2 K/mm3 (4.8-10.8)
[2024-11-28 07:46] LABS: Albumin Level 3.3 g/dl (3.5-5.0); Chloride 101 mmol/L (98-107)
[2024-11-28 07:47] LABS: Potassium 4.3 mmoL/L (3.5-5.1); Sodium 137 mmol/L (136-145)
[2024-11-28 07:49] LABS: Alanine Aminotransferase 21 U/L (12-78); Aspartate Amino Transferase 38 U/L (14-36); Blood Urea Nitrogen 33 mg/dl (7-17); Creatinine Clearance Estimated 33 mL/min (50-200); Estimated Glomerular Filt Rate 31 ml/min (>60); GFR (African American) 37 ML/MIN (>60)
[2024-11-28 07:50] LABS: Albumin/Globulin Ratio 1.3 (1.1-1.8); Alkaline Phosphatase 108 U/L (38-126); Anion Gap 7.3 mEq/L (5-15); Bilirubin,Total 0.4 mg/dl (0.2-1.3); Calcium 8.7 mg/dl (8.4-10.2); Carbon Dioxide 33 mmol/L (22.0-30.0); Globulin 2.5 g/dL (1.3-3.2); Glucose 255 mg/dl (74-100); Magnesium 2.3 mg/dl (1.6-2.3); Total Protein,Serum 5.8 g/dl (6.3-8.2)
[2024-11-28 08:00] VITALS: BP 148/63; PULSE 72; RESP 18; TEMP 36; O2SAT 97
[2024-11-28] MEDS: SPIRONOLACTONE 25MG TABLET 25 MG PO (08:42)
[2024-11-28] MEDS: FUROSEMIDE 40MG/4ML VIAL 40 MG IV (08:42)
[2024-11-28] MEDS: ENOXAPARIN 40MG/0.4ML SYRINGE 40 MG SUBCUT (08:42)
[2024-11-28] MEDS: METFORMIN 500MG TABLET 500 MG PO (08:43)
[2024-11-28] MEDS: CHOLECALCIFEROL 1,000 UNITS (25MCG) TABLET 50 MCG PO (08:43)
[2024-11-28] MEDS: METOPROLOL SUCCINATE XL 50MG TABLET 50 MG PO (08:43)
[2024-11-28] MEDS: SERTRALINE 50MG TABLET 50 MG PO (08:43)
[2024-11-28 10:53] VITALS: O2SAT 91
[2024-11-28] MEDS: levoFLOXacin 750 MG TABLET PO (11:39)
[2024-11-28 12:00] VITALS: BP 147/99; PULSE 70; RESP 18; TEMP 36.1; O2SAT 98
--- NOTE | 2024-11-28 12:19 | P.DS_ITS ---
General Admission date:: 11/25/24 HPI HPI HPI: Magdalena Mcmanus is a 79-year-old female with a medical history significant for type 2 diabetes, hypertension, hypothyroidism who presents with 2 weeks of intermittent confusion, shortness of breath. Daughter at bedside provides most history. They state patient was recently admitted to [facility] in September 2020 for for left humeral fracture that was treated nonoperatively. Discharged to rehab, and returned home with home health end of September. Since then, per daughter, patient has not been truly herself and for the past 2 weeks she is gotten much more confused, and has required 2 L nasal cannula continuously at home. She is also had a few falls at home. She lives with her , daughter at home. Denies fever/chills, chest pain, abdominal pain, constipation/diarrhea. Daughter does state her legs have been more swollen today. Workup in the ED significant for BNP 10,700, CXR suggestive of pulmonary edema, UA suggestive of UTI. Head CT unremarkable for acute findings. Case discussed with ED provider and decision was made to admit patient for acute metabolic encephalopathy, UTI, heart failure exacerbation. Hospital Course Hospital Course Hospital Course: Magdalena Mcmanus is a 79-year-old female with a medical history significant for type 2 diabetes, hypertension, hypothyroidism who presents with 2 weeks of intermittent confusion, shortness of breath. Daughter at bedside provides most history. They state patient was recently admitted to [facility] in September 2020 for for left humeral fracture that was treated nonoperatively. Discharged to rehab, and returned home with home health end of September. Since then, per daughter, patient has not been truly herself and for the past 2 weeks she is gotten much more confused, and has required 2 L nasal cannula continuously at home. She is also had a few falls at home. She lives with her , daughter at home. Denies fever/chills, chest pain, abdominal pain, constipation/diarrhea. Daughter does state her legs have been more swollen today. Workup in the ED significant for BNP 10,700, CXR suggestive of pulmonary edema, UA suggestive of UTI. Head CT unremarkable for acute findings. Case discussed with ED provider and decision was made to admit patient for acute metabolic encephalopathy, UTI, heart failure exacerbation. #Acute metabolic encephalopathy #UTI ? Patient intermittently confused/agitated, improved today ANO x 3. Likely superimposed hospital-acquired delirium. ? UA grossly abnormal, urine culture growing Enterococcus faecalis. Switched to Levaquin based on sensitivities. ? TFTs, B12, folate, iron studies, blood culture normal. Vitamin D 33, started oral vitamin D 2000 IU. ? Unable to obtain MRI due to patient's pacemaker. ? Patient will need further workup for intermittent confusion, dementia may be at play. Referred to [facility] [place]. ? Finish course of levothyroxine for 3 more days. #Acute hypoxic respiratory failure # HFpEF exacerbation ? Initial BNP elevated 10,700, CXR with pulmonary edema. ? Initially requiring 2 L continuous nasal cannula, new requirement. Weaned to room air with appropriate saturations. ? ECHO reveals normal biventricular function, but marked increase in LV wall thickness. ? Clinically improved with Lasix, spironolactone diuresis. ? Discharged with Lasix 40 mg daily, spironolactone 25 mg daily. #Physical deconditioning ? PT/OT consulted, recommended SNF. Case discussed with case management, the [facility] grac[facility] accepted patient. #Type 2 diabetes ? LDSSI, ACHS glucose checks. ? Hemoglobin A1c 8.3, not at goal. ? Lantus 35 units nightly. Low dose sliding scale insulin with meals. ? Started metformin 500 mg twice daily. Uptitrate as tolerated. #Hypothyroidism ? Resume home levothyroxine 100 mcg. TFTs normal during admission. #CKD stage III ? Stable. Creatinine 1.6, GFR 33. Exam Data for Last 24 hours Vital signs and Labs for Last 24 Hours: Temp Pulse Resp BP Pulse Ox O2 Del Method O2 Flow Rate 96.8 F L 72 18 148/63 H 91 L Nasal Cannula 2 11/28/24 08:00 11/28/24 08:00 11/28/24 08:00 11/28/24 08:00 11/28/24 10:53 11/28/24 11:00 11/28/24 11:00 Laboratory Results - last 24 hr 11/27/24 15:54: POC Glucose 336 H* 11/27/24 21:05: POC Glucose 201 H 11/28/24 05:43: POC Glucose 273 H 11/28/24 07:22: WBC 6.2, RBC 4.15 L, Hgb 11.8 L, Hct 37.1, MCV 89.4, MCH 28.4, MCHC 31.8, RDW 13.7, Plt Count 136 L, MPV 9.8, Neut % (Auto) 72.1, Lymph % (Auto) 17.6, Lee % (Auto) 5.8, Eos % (Auto) 4.0, Baso % (Auto) 0.3, Neut # (Auto) 4.5, Lymph # (Auto) 1.1, Lee # (Auto) 0.4, Eos # (Auto) 0.3, Baso # (Auto) 0.0, Sodium 137, Potassium 4.3 D, Chloride 101, Carbon Dioxide 33 H, Anion Gap 7.3, BUN 33 H, Creatinine 1.60 H, Estimated Creat Clear 33, Estimated GFR 31 L, Est GFR ( Amer) 37 L, Glucose 255 H, Calcium 8.7, Magnesium 2.3 D, Total Bilirubin 0.4, AST 38 H, ALT 21, Alkaline Phosphatase 108, Total Protein 5.8 L, Albumin 3.3 L, Globulin 2.5, Albumin/Globulin Ratio 1.3 I & O for Last 24 hours: Intake & Output 11/25/24 11/26/24 11/27/24 11/28/24 23:59 23:59 23:59 23:59 Intake Total 1290 / 1290 950 / 950 250 / 250 0 / 0 Output Total 600 / 600 500 / 500 1900 / 1900 Balance 690 / 690 450 / 450 -1650 / -1650 0 / 0 Weight 76.657 kg 74.66 kg 75.251 kg 76.294 kg Microbiology Reports for the Last 24 Hours: Microbiology 11/24/24 10:08 Blood Blood Culture - Preliminary NO GROWTH AFTER 4 DAYS 11/24/24 11:30 Blood Blood Culture - Final Staphylococcus epidermidis Constitutional Constitutional: no acute distress Comments: Intermittently confused. *Routine HEENT Exam Head: Present normocephalic Eye: Present EOMI and PERRL ENT: Present mucous membranes moist *Routine Neck Exam Neck: Present supple; Absent lymphadenopathy *Routine Respiratory Exam Respiratory: Present CTA bilaterally *Routine Cardiovascular Exam Cardiovascular: Present RRR *Routine Abdominal Exam Abdominal: Present soft and normoactive bowel sounds; Absent tenderness *Routine Extremities Exam Extremities: Absent cyanosis, clubbing or edema *Routine Skin Exam Skin: Present warm; Absent rash *Routine Neurological Exam Neurological: Present alert Results Data Completed and Pending Labs on day of discharge: Labs from last 24 hours 11/28/24 11/28/24 11/27/24 07:22 05:43 21:05 WBC 6.2 RBC 4.15 L Hgb 11.8 L Hct 37.1 MCV 89.4 MCH 28.4 MCHC 31.8 RDW 13.7 Plt Count 136 L MPV 9.8 Neut % (Auto) 72.1 Lymph % (Auto) 17.6 Lee % (Auto) 5.8 Eos % (Auto) 4.0 Baso % (Auto) 0.3 Neut # (Auto) 4.5 Lymph # (Auto) 1.1 Lee # (Auto) 0.4 Eos # (Auto) 0.3 Baso # (Auto) 0.0 Sodium 137 Potassium 4.3 D Chloride 101 Carbon Dioxide 33 H Anion Gap 7.3 BUN 33 H Creatinine 1.60 H Estimated Creat Clear 33 Estimated GFR 31 L Est GFR ( Amer) 37 L Glucose 255 H POC Glucose 273 H 201 H Calcium 8.7 Magnesium 2.3 D Total Bilirubin 0.4 AST 38 H ALT 21 Alkaline Phosphatase 108 Total Protein 5.8 L Albumin 3.3 L Globulin 2.5 Albumin/Globulin Ratio 1.3 11/27/24 15:54 WBC RBC Hgb Hct MCV MCH MCHC RDW Plt Count MPV Neut % (Auto) Lymph % (Auto) Lee % (Auto) Eos % (Auto) Baso % (Auto) Neut # (Auto) Lymph # (Auto) Lee # (Auto) Eos # (Auto) Baso # (Auto) Sodium Potassium Chloride Carbon Dioxide Anion Gap BUN Creatinine Estimated Creat Clear Estimated GFR Est GFR ( Amer) Glucose POC Glucose 336 H* Calcium Magnesium Total Bilirubin AST ALT Alkaline Phosphatase Total Protein Albumin Globulin Albumin/Globulin Ratio Preliminary micro results at discharge 11/24/24 10:08 Blood Culture - Preliminary Blood NO GROWTH AFTER 4 DAYS DS: Diagnosis Discharge Diagnosis (1) Type 2 diabetes mellitus: Status: Acute Code(s): E11.9 - Type 2 diabetes mellitus without complications Qualifiers: Diabetes mellitus complication status: without complication Diabetes mellitus [facility] insulin use: without rental boats caretaker use Qualified Code(s): E11.9 - Type 2 diabetes mellitus without complications Meds Home Medications and Allergies Home Medications ?Medication ?Instructions ?Recorded ?Confirmed ?Type ferrous fumarate 325 mg (106 mg 325 mg PO DAILY 08/09/22 11/24/24 History iron) tablet isosorbide mononitrate 30 mg 30 mg PO HS 08/09/22 11/24/24 History tablet,extended release 24 hr iipyyyrf-xduq-mvybrhx gluconate 9 15 ml PO DAILY 08/09/22 11/24/24 History mg iron/15 mL (15 mL) oral liquid (Centrum) albuterol sulfate 90 mcg/actuation 2 inh inhalation NEEDED PRN 08/14/23 11/24/24 History aerosol inhaler shortness of air blood sugar diagnostic (True #10 ea 08/14/23 11/24/24 History Metrix Glucose Test Strip) lancets 30 gauge (TRUEplus Lancets) #100 ea 08/14/23 11/24/24 History atorvastatin 40 mg tablet 40 mg PO HS 11/24/24 11/24/24 History hydroxyzine pamoate 25 mg capsule 25 mg PO HS 11/24/24 11/24/24 History insulin aspart U-100 100 unit/mL See Protocol SQ NEEDED PRN 11/24/24 11/24/24 History subcutaneous solution (Novolog Hyperglycemia U-100 Insulin aspart) levothyroxine 100 mcg tablet 100 mcg PO DAILY 11/24/24 11/24/24 History melatonin 5 mg tablet 5 mg PO HS PRN Sleep 11/24/24 11/24/24 History metoprolol succinate 50 mg 50 mg PO DAILY 11/24/24 11/24/24 History tablet,extended release 24 hr tramadol 50 mg tablet 50 mg PO BIDP PRN Pain 11/24/24 11/24/24 History cholecalciferol (vitamin D3) 25 50 mcg (2 x 25 mcg (1,000 unit)) 11/28/24 Rx mcg (1,000 unit) tablet PO DAILY 30 days #60 tabs furosemide 40 mg tablet (Lasix) 40 mg PO DAILY #30 tabs 11/28/24 Rx insulin glargine 100 unit/mL (3 35 unit (0.35 mL) SQ HS 30 days 11/28/24 Rx mL) subcutaneous pen (Lantus #10.5 mL Solostar U-100 Insulin) insulin lispro 100 unit/mL See Protocol SQ ACHS 30 days #10 mL 11/28/24 Rx subcutaneous solution (Humalog U-100 Insulin) levofloxacin 750 mg tablet 750 mg PO Q48H 3 days #2 tabs 11/28/24 Rx metformin 500 mg tablet 500 mg PO BIDWMEAL 30 days #60 tabs 11/28/24 Rx olanzapine 5 mg disintegrating 5 mg sublingual HS 30 days #30 tabs 11/28/24 Rx tablet sertraline 100 mg tablet 50 mg (1/2 x 100 mg) PO DAILY 30 11/28/24 11/24/24 Rx days #0 tabs spironolactone 25 mg tablet 25 mg PO DAILY 30 days #30 tabs 11/28/24 Rx New Prescriptions to Start Prescriptions: cholecalciferol (vitamin D3) Crista,Saul furosemide [Lasix] Crista,Saul insulin glargine [Lantus Solostar U-100 Insulin] Crista,Saul insulin lispro [Humalog U-100 Insulin] Crista,Saul levofloxacin Crista,Saul metformin Crista,Saul olanzapine Crista,Saul spironolactone Crista,Saul Allergies Allergy/AdvReac Type Severity Reaction Status Date / Time Penicillins Allergy Mild hives Verified 11/24/24 10:30 Iodinated Contrast Media Allergy Difficulty Verified 11/25/24 07:28 Breathing adhesive AdvReac Mild blisters Verified 11/24/24 10:30 Discharge Plan Disposition Patient Disposition: Xfer SNF Condition: Fair Discharge Order Discharge Orders: Discharge Order (Routine); Ordered 11/28/24 Ordered By: Saul Tobin Follow up Plan Follow up with: Raimundo Park PA [Physician [employer] Machine Operator] - Enter time for follow up Prescriptions/Medication Reconciliation: New insulin glargine [Lantus Solostar U-100 Insulin] 100 unit/mL (3 mL) Insulin Pen 35 unit SQ HS 30 Days Qty: 10.5 0RF metformin 500 mg Tablet 500 mg PO BIDWMEAL 30 Days Qty: 60 0RF spironolactone 25 mg Tablet 25 mg PO DAILY 30 Days Qty: 30 0RF levofloxacin 750 mg Tablet 750 mg PO Q48H 3 Days Qty: 2 0RF olanzapine 5 mg Tablet,Disintegrating 5 mg sublingual HS 30 Days Qty: 30 0RF furosemide [Lasix] 40 mg tablet 40 mg PO DAILY Qty: 30 0RF insulin lispro [Humalog U-100 Insulin] 100 unit/mL Solution See Protocol SQ ACHS 30 Days Qty: 10 0RF Protocol: Insulin Corrective Low-Dose Regimen Condition: Fingerstick Blood Glucose Dose/Route: Insulin Units Condition: 151-200 mg/dl Dose/Route: 2 unit/SQ Condition: 201-250 mg/dl Dose/Route: 4 units/SQ Condition: 251-300 mg/dl Dose/Route: 6 units/SQ Condition: 301-350 mg/dl Dose/Route: 8 units/SQ Condition: 351-400 mg/dl Dose/Route: 10 units/SQ Condition: 401-450 mg/dl Dose/Route: 12 units/SQ Condition: > 450 mg/dl Dose/Route: CALL MD Protocol Text: Low Intensity Sliding Scale Insulin cholecalciferol (vitamin D3) 25 mcg (1,000 unit) Tablet 50 mcg PO DAILY 30 Days Qty: 60 0RF Continued (DME) True Metrix Glucose Test Strip Strip See Rx Instructions .ROUTE .MEDSUPPLY Qty: 10 Patient Comments: USE TO CHECK BLOOD SUGAR 3 TIMES A DAY Rx Instructions: As directed albuterol sulfate 90 mcg/actuation HFA aerosol inhaler 2 inh inhalation NEEDED PRN (Reason: shortness of air) (DME) lancets [TRUEplus Lancets] 30 gauge misc See Rx Instructions .ROUTE .MEDSUPPLY Qty: 100 Patient Comments: USE TO CHECK BLOOD SUGAR 3 TIMES A DAY DX E11.9 Rx Instructions: As directed isosorbide mononitrate 30 mg tablet extended release 24 hr 30 mg PO HS ferrous fumarate 325 mg (106 mg iron) tablet 325 mg PO DAILY Centrum 9 mg iron/ 15 mL (15 mL) liquid 15 ml PO DAILY metoprolol succinate 50 mg tablet extended release 24 hr 50 mg PO DAILY Patient Comments: TAKE 1 TABLET BY MOUTH DAILY. tramadol 50 mg tablet 50 mg PO BIDP PRN (Reason: Pain) insulin aspart U-100 [Novolog U-100 Insulin aspart] 100 unit/mL solution See Protocol SQ NEEDED PRN (Reason: Hyperglycemia) Protocol: Insulin Corrective Low-Dose Regimen Condition: Fingerstick Blood Glucose Dose/Route: Insulin Units Condition: 151-200 mg/dl Dose/Route: 2 unit/SQ Condition: 201-250 mg/dl Dose/Route: 4 units/SQ Condition: 251-300 mg/dl Dose/Route: 6 units/SQ Condition: 301-350 mg/dl Dose/Route: 8 units/SQ Condition: 351-400 mg/dl Dose/Route: 10 units/SQ Condition: 401-450 mg/dl Dose/Route: 12 units/SQ Condition: > 450 mg/dl Dose/Route: CALL MD Protocol Text: Low Intensity Sliding Scale Insulin atorvastatin 40 mg tablet 40 mg PO HS Patient Comments: TAKE 1 TABLET BY MOUTH DAILY. levothyroxine 100 mcg tablet 100 mcg PO DAILY Patient Comments: TAKE 1 TABLET BY MOUTH DAILY. melatonin 5 mg Tablet 5 mg PO HS PRN (Reason: Sleep) hydroxyzine pamoate 25 mg Capsule 25 mg PO HS Changed sertraline 100 mg tablet 50 mg PO DAILY 30 Days Qty: 0 0RF Discontinued famotidine 20 mg tablet 10 mg PO HS Patient Comments: TAKE 1/2 TABLET BY MOUTH EVERY EVENING insulin lispro 100 unit/mL solution 40 unit SQ DAILY Patient Comments: INJECT 10 UNITS UNDER THE SKIN 3 TIMES DAILY BEFORE MEALS torsemide 20 mg tablet 20 mg PO DAILYP PRN (Reason: Weight Gain) Patient Comments: TAKE 1 TABLET BY MOUTH DAILY NEEDED (WEIGHT GAIN >3 LB OVERNIGHT OR >5 LB IN A WEEK). Problem Reconciliation Problems Reviewed?: Yes Patient Discharge Instructions Patient Instructions: Urinary Tract Infection, Encephalopathy Print Language: [place]an Providers Primary Care Provider: Wyatt Hagan Admit Provider: Saul Tobin Attending Provider: Saul Tobin
--- NOTE | 2024-11-28 15:04 | PC.NURSE ---
Report called to Mami at [facility]
[2024-11-29 01:47] LABS: POC Glucose,Bedside 166 (70-110)
== END 2024-11-28 15:32 | DRG 70 ==
LOC: ER 10:32 → 2ND 13:34
PROVIDERS: Admitting Provider Student in an Organized Health Care Education/Training Program; Emergency Provider Emergency Medicine; PCP Family Medicine; Visit Provider Student in an Organized Health Care Education/Training Program
DX: G93.41 Metabolic encephalopathy (principal); I50.33 Acute on chronic diastolic (congestive) heart failure; J96.01 Acute respiratory failure with hypoxia; N39.0 Urinary tract infection, site not specified; I13.0 Hypertensive heart and chronic kidney disease with heart failure and stage 1 through stage 4 chronic kidney disease, or unspecified chronic kidney disease; Z16.29 Resistance to other single specified antibiotic; E03.9 Hypothyroidism, unspecified; R53.81 Other malaise; N18.30 Chronic kidney disease, stage 3 unspecified; E11.22 Type 2 diabetes mellitus with diabetic chronic kidney disease; E11.65 Type 2 diabetes mellitus with hyperglycemia; B95.2 Enterococcus as the cause of diseases classified elsewhere; Z79.02 Long term (current) use of antithrombotics/antiplatelets; Z95.0 Presence of cardiac pacemaker; Z79.899 Other long term (current) drug therapy; Z79.890 Hormone replacement therapy; Z79.4 Long term (current) use of insulin; Z99.81 Dependence on supplemental oxygen; Z85.3 Personal history of malignant neoplasm of breast; Z90.49 Acquired absence of other specified parts of digestive tract; Z91.81 History of falling; Z74.1 Need for assistance with personal care
CPT/HCPCS: 36415; 70450; 71045; 72125; 80053; 80061; 81001; 82140; 82306; 82607; 82728; 82746; 82803; 82962; 83036; 83540; 83550; 83690; 83735; 83880; 84145; 84439; 84443; 84484; 85025; 86803; 87040; 87077; 87086; 87088; 87186; 87389; 87633; 87636; 93005; 93306; 97110; 97163; 97166; 97530; 97535; 99285; G0378; J0696; J1630; J1650; J1940; J3475